=== PATIENT | female | born 1970 ===

== ENCOUNTER 2016-06-29 06:10 | Emergency (ER) | payer OTHER ==
[2016-06-29 06:10] VITALS: BMI 30.1
--- NOTE | 2016-06-29 06:42 | ED PDOC ---
HPI: SOB/CHF/COPD Time Seen by Provider: 06/29/16 06:30 Chief Complaint (Nursing): Cough, Cold, Congestion Chief Complaint (Provider): Shortness of Breath History Per: Patient History/Exam Limitations: no limitations Onset/Duration Of Symptoms: Hrs Current Symptoms Are (Timing): Still Present Initiating Event: Upper Respiratory Illness Quality: Tightness Exacerbating Factor(s): Coughing Current Respiratory Medications: See Home Med List Severity: Moderate Associated Symptoms: Chest Pain, Other (cough). denies: Fever, Bloody Cough, Productive Cough, Ankle/Leg Swelling Additional Complaint(s): Eufemia Louis is a 45 year old female, with a past medical history of asthma, bronchitis, and HTN, who presents to the emergency department for the evaluation of shortness of breath, that the patient has been experiencing for a few hours prior to arrival. Pain is inclusive of chest tightness. Associated cough and chest pain are also currently present. Denies a fever or leg swelling. Of note, patient states that her albuterol pump is not providing her any relief , prompting her visit to the emergency department. PMD: Dr. Sahu Past Medical History Reviewed: Historical Data Vital Signs: Last Vital Signs Temp 98.4 F 06/29/16 06:21 Pulse 102 H 06/29/16 06:58 Resp 20 06/29/16 06:21 BP 144/70 06/29/16 06:21 Pulse Ox 96 06/29/16 06:58 - Medical History PMH: Anxiety, Asthma, Bronchitis, HTN - Surgical History Surgical History: (x2) - Family History Family History: States: Hypertension - Social History Current smoker - smoking cessation education provided: No Ex-Smoker (has not smoked in the last 12 months): No Alcohol: Occasional Drugs: Denies - Home Medications Home Medications: Ambulatory Orders Medication Instructions Recorded Dicyclomine [Dicyclomine HCl] 10 mg PO BID PRN #6 cap 01/31/15 Fluticasone/Salmeterol 250/50 1 puff INH DAILY 01/31/15 [Advair Diskus 250/50] Mometasone Furoate [Nasonex] 2 spray NS DAILY 01/31/15 Montelukast [Singulair] 10 mg PO DAILY 01/31/15 Ondansetron [Zofran] 4 mg PO Q8H PRN #6 tab 01/31/15 Valsartan [Diovan] 160 mg PO DAILY 01/31/15 Albuterol 0.083% [Albuterol 3 ml IH Q4 PRN #50 neb 05/26/16 Sulfate 3 Ml] Erythromycin 500 mg PO BID 10 Days 05/26/16 Montelukast [Singulair] 10 mg PO DAILY #30 tab 05/26/16 Prednisone 50 mg PO DAILY #4 tablet 05/26/16 - Allergies Allergies/Adverse Reactions: Allergies Allergy/AdvReac Type Severity Reaction Status Date / Time ibuprofen Allergy CONGESTION Verified 08/24/15 09:27 naproxen Allergy CONGESTION Verified 08/24/15 09:27 Review of Systems ROS Statement: Except As Marked, All Systems Reviewed And Found Negative Constitutional: Negative for: Fever Cardiovascular: Positive for: Chest Pain. Negative for: Edema (leg swelling) Respiratory: Positive for: Cough, Shortness of Breath, Wheezing. Negative for: Sputum Physical Exam - Reviewed Nursing Documentation Reviewed: Yes Vital Signs Reviewed: Yes - Physical Exam Appears: Positive for: Non-toxic, No Acute Distress Head Exam: Positive for: ATRAUMATIC, NORMOCEPHALIC Skin: Positive for: Normal Color, Warm, Dry Eye Exam: Positive for: Normal appearance, EOMI ENT: Positive for: Normal ENT Inspection. Negative for: Pharyngeal Erythema, Tonsillar Exudate, Tonsillar Swelling Neck: Positive for: Normal, Painless ROM Cardiovascular/Chest: Positive for: Regular Rate, Rhythm. Negative for: Murmur Respiratory: Positive for: Decreased Breath Sounds, Wheezing (b/l) Gastrointestinal/Abdominal: Positive for: Normal Exam, Soft. Negative for: Tenderness Back: Positive for: Normal Inspection Extremity: Positive for: Normal ROM. Negative for: Tenderness, Pedal Edema, Swelling Neurologic/Psych: Positive for: Alert, Oriented - ECG ECG Rhythm: Positive for: Normal ST Segment, Sinus Rhythm, Sinus Tachycardia. Negative for: ST/T Changes Rate: 102 O2 Sat by Pulse Oximetry: 96 (RA) Pulse Ox Interpretation: Normal Medical Decision Making Medical Decision Makin:30 Initial Impression: asthma exacerbation Initial Plan: * EKG * CBC * BMP * Troponin I * Albuterol/Ipratropium 3ml INH * SOLU-Medrol 125mg IVP * Peak Flow Pre/Post Tx * Reevaluation EKG read, rate at 102. Normal Sinus Rhythm, Normal ST Segment, no ST/T changes, Sinus Tachycardia. Scribe Attestation: Documented by Akbar Smith, acting as a scribe for Gomez Mauro MD. Provider Scribe Attestation: All medical record entries made by the Scribe were at my direction and personally dictated by me. I have reviewed the chart and agree that the record accurately reflects my personal performance of the history, physical exam, medical decision making, and the department course for this patient. I have also personally directed, reviewed, and agree with the discharge instructions and disposition. Disposition - Clinical Impression Clinical Impression: Asthma - Patient ED Disposition Is Patient to be Admitted: Transfer of Care Counseled Patient/Family Regarding: Studies Performed, Diagnosis - Disposition Disposition: Transfer of Care Disposition Time: 07:00 Condition: FAIR Patient Signed Over To: Bj Loza III Handoff Comments: pending labs, reeval and final disposition
[2016-06-29] MEDS ORDERED: Albuterol-Ipratrop 3 mg / 0.5 (3 ml) UD INH STA ×3 (06:43→11:43)
[2016-06-29 07:10] LABS: BASO # 0.1 K/uL (0.0-0.2); BASO % 0.6 % (0.0-2.0); EOS # 1.1 K/uL (0.0-0.7); EOS % 7.5 % (0.0-4.0); HEMATOCRIT 35.3 % (34.0-47.0); LYMPH # 2.2 K/uL (1.0-4.3); LYMPH % 15.1 % (20.0-40.0); MEAN CELL VOLUME 82.4 fl (81.0-99.0); MEAN CORPUSCULAR HEMOGLOBIN 27.2 pg (27.0-31.0); MEAN CORPUSCULAR HGB CONC 33.1 g/dL (33.0-37.0); MEAN PLATELET VOLUME 8.8 fl (7.2-11.7); MONO # 1.3 K/uL (0.0-0.8); NEUT % 67.8 % (50.0-75.0); RED CELL DISTRIBUTION WIDTH 14.7 % (11.5-14.5); WHITE BLOOD COUNT 14.7 K/uL (4.8-10.8)
[2016-06-29 07:19] LABS: BLOOD UREA NITROGEN 15 mg/dl (7-17); CALCIUM 8.9 mg/dL (8.4-10.2); CARBON DIOXIDE 23 mmol/L (22-30); CHLORIDE 108 mmol/L (98-107); GFR AFRICAN-AMERICAN > 60; GLUCOSE,RANDOM 93 mg/dL (65-105); POTASSIUM 3.6 MMOL/L (3.6-5.0); SODIUM 142 mmol/l (132-148)
[2016-06-29 08:42] VITALS: RESP 16; O2SAT 98
--- NOTE | 2016-06-29 12:28 | ED PDOC ---
- Laboratory Results Result Diagrams: 06/29/16 07:03 06/29/16 07:03 - ECG O2 Sat by Pulse Oximetry: 98 (RA) Pulse Ox Interpretation: Normal Medical Decision Making Medical Decision Making: Time: 11:00 --Patient had wheezing b/l --Additional Duoneb 3 mg/3ml (3ml) UD 3ml IH given --Heartrate: 96 bpm --Pulse O2: 98% Time: 12:26 --Patient reports she is feeling better and has a normal speech pattern. --Pulse O2: 99% Disposition - Clinical Impression Clinical Impression: Asthma - Disposition Referrals: Osman Tan MD [Staff Provider] - Condition: STABLE Additional Instructions: Take medication as directed. Return to ER for any new or worse symptoms. Prescriptions: Albuterol 0.083% [Albuterol 0.083% Inhal Annamaria (2.5 mg/3 ml) UD] 2.5 mg IH Q4 PRN #20 neb PRN Reason: Wheezing Prednisone 50 mg PO DAILY #4 tab Albuterol HFA [Ventolin HFA 90 mcg/actuation (8 g)] 1 - 2 puff IH Q4 PRN #1 inhaler PRN Reason: Shortness Of Breath Instructions: Asthma (ED), Acute Cough (ED)
[2016-06-29 12:30] VITALS: BP 124/79; PULSE 92; TEMP 98
--- NOTE | 2016-06-29 15:01 | CARD ---
APPROVED REPORT EKG Measurement Heart [id number] <Conclusion> Sinus tachycardia Otherwise normal ECG
== END 2016-06-29 12:29 | disposition home or self-care (01) ==
LOC: H.ER 06:10
DX: J45.901 Unspecified asthma with (acute) exacerbation (principal); I10 Essential (primary) hypertension; R05 Cough

== ENCOUNTER 2016-07-25 09:03 | Emergency (ER) | payer SELFPAY ==
[2016-07-25 09:03] VITALS: BMI 30.1
[2016-07-25 09:23] VITALS: BP 137/109; O2SAT 99
[2016-07-25 09:25] VITALS: RESP 18
[2016-07-25 09:27] VITALS: TEMP 98.3
[2016-07-25] MEDS ORDERED: Albuterol-Ipratrop 3 mg / 0.5 (3 ml) UD ONE (09:58)
[2016-07-25] MEDS ORDERED: Albuterol-Ipratrop 3 mg / 0.5 (3 ml) UD INH STA ×2 (10:07→12:21)
[2016-07-25 10:43] LABS: BASO # 0.1 K/uL (0.0-0.2); BASO % 0.6 % (0.0-2.0); EOS # 1.3 K/uL (0.0-0.7); EOS % 11.6 % (0.0-4.0); HEMATOCRIT 39.4 % (34.0-47.0); LYMPH # 2.2 K/uL (1.0-4.3); LYMPH % 19.7 % (20.0-40.0); MEAN CORPUSCULAR HEMOGLOBIN 26.7 pg (27.0-31.0); MEAN CORPUSCULAR HGB CONC 32.6 g/dL (33.0-37.0); MEAN PLATELET VOLUME 8.8 fl (7.2-11.7); MONO # 0.9 K/uL (0.0-0.8); MONO % 8.2 % (0.0-10.0); NEUT # 6.8 K/uL (1.8-7.0); NEUT % 59.9 % (50.0-75.0); RED CELL DISTRIBUTION WIDTH 14.7 % (11.5-14.5); WHITE BLOOD COUNT 11.3 K/uL (4.8-10.8)
[2016-07-25 10:46] LABS: BLOOD UREA NITROGEN 9 mg/dl (7-17); CALCIUM 9.1 mg/dL (8.4-10.2); CARBON DIOXIDE 23 mmol/L (22-30); CHLORIDE 110 mmol/L (98-107); GFR AFRICAN-AMERICAN > 60; GLUCOSE,RANDOM 95 mg/dL (65-105); POTASSIUM 3.7 MMOL/L (3.6-5.0); SODIUM 141 mmol/l (132-148)
--- NOTE | 2016-07-25 12:50 | ED PDOC ---
HPI: SOB/CHF/COPD Time Seen by Provider: 07/25/16 09:26 Chief Complaint (Nursing): Shortness Of Breath Chief Complaint (Provider): Shortness Of Breath History Per: Patient History/Exam Limitations: no limitations Onset/Duration Of Symptoms: Days Current Symptoms Are (Timing): Still Present Initiating Event: Upper Respiratory Illness Quality: Tightness Exacerbating Factor(s): Coughing Current Respiratory Medications: See Home Med List Severity: Moderate Associated Symptoms: denies: Fever, Bloody Cough Additional Complaint(s): Patient is a 45 year old female with a history of mild persistent asthma, presents to ED for wheezing, SOB and cough ongoing for 2-3 days. Patient reports last asthma attack was last month, states symptoms usually worsen with weather changes. Taking Advair and antihistamine at home, denies hemoptysis, fever, chest pain or weakness Of note, last steroid use was last month. Past Medical History Reviewed: Historical Data, Nursing Documentation, Vital Signs Vital Signs: Last Vital Signs Temp 98.3 F 07/25/16 09:20 Pulse 109 H 07/25/16 09:20 Resp 18 07/25/16 09:24 BP 137/109 H 07/25/16 09:20 Pulse Ox 99 07/25/16 12:54 - Medical History PMH: Anxiety, Asthma, Bronchitis, HTN - Surgical History Surgical History: (x2) - Family History Family History: States: Unknown Family Hx, Hypertension - Living Arrangements Living Arrangements: With Family - Home Medications Home Medications: Ambulatory Orders Medication Instructions Recorded Dicyclomine [Dicyclomine HCl] 10 mg PO BID PRN #6 cap 01/31/15 Fluticasone/Salmeterol 250/50 1 puff INH DAILY 01/31/15 [Advair Diskus 250/50] Mometasone Furoate [Nasonex] 2 spray NS DAILY 01/31/15 Montelukast [Singulair] 10 mg PO DAILY 01/31/15 Ondansetron [Zofran] 4 mg PO Q8H PRN #6 tab 01/31/15 Valsartan [Diovan] 160 mg PO DAILY 01/31/15 Albuterol 0.083% [Albuterol 3 ml IH Q4 PRN #50 neb 05/26/16 Sulfate 3 Ml] Erythromycin 500 mg PO BID 10 Days 05/26/16 Montelukast [Singulair] 10 mg PO DAILY #30 tab 05/26/16 Prednisone 50 mg PO DAILY #4 tablet 05/26/16 Albuterol 0.083% [Albuterol 0.083% 2.5 mg IH Q4 PRN #20 neb 06/29/16 Inhal Letty (2.5 mg/3 ml) UD] Albuterol HFA [Ventolin HFA 90 1 - 2 puff IH Q4 PRN #1 inhaler 06/29/16 mcg/actuation (8 g)] Prednisone 50 mg PO DAILY #4 tab 06/29/16 Albuterol 0.042% [Albuterol 0.042% 3 ml IH Q4 PRN #20 letty 07/25/16 Inhal Letty (1.25mg/3ml) UD] Albuterol 0.083% [Albuterol 0.083% 2.5 mg IH Q4 PRN #20 neb 07/25/16 Inhal Letty (2.5 mg/3 ml) UD] Codeine Phosphate/Guaifenesin 10 ml PO TID PRN #120 liquid 07/25/16 [Guaifenesin-Codeine Syrup] Prednisone 50 mg PO DAILY #4 tab 07/25/16 - Allergies Allergies/Adverse Reactions: Allergies Allergy/AdvReac Type Severity Reaction Status Date / Time ibuprofen Allergy CONGESTION Verified 08/24/15 09:27 naproxen Allergy CONGESTION Verified 08/24/15 09:27 Review of Systems ROS Statement: Except As Marked, All Systems Reviewed And Found Negative Constitutional: Negative for: Fever, Chills, Weakness Cardiovascular: Negative for: Chest Pain, Palpitations Respiratory: Positive for: Cough, Shortness of Breath, Wheezing. Negative for: Hemoptysis Gastrointestinal: Negative for: Nausea, Vomiting, Abdominal Pain Musculoskeletal: Negative for: Back Pain Skin: Negative for: Rash Physical Exam - Reviewed Nursing Documentation Reviewed: Yes Vital Signs Reviewed: Yes - Physical Exam Appears: Positive for: Non-toxic, No Acute Distress Skin: Positive for: Normal Color, Warm Eye Exam: Positive for: Normal appearance Neck: Positive for: Normal Cardiovascular/Chest: Positive for: Regular Rate, Rhythm, Chest Non Tender. Negative for: Murmur Respiratory: Positive for: Wheezing (trace bilaterally ). Negative for: Decreased Breath Sounds, Accessory Muscle Use, Rhonchi, Respiratory Distress Extremity: Positive for: Normal ROM. Negative for: Pedal Edema, Calf Tenderness Neurologic/Psych: Positive for: Alert, Oriented - Laboratory Results Result Diagrams: 07/25/16 10:18 07/25/16 10:18 - ECG ECG: Positive for: Interpreted By Me ECG Rhythm: Positive for: Normal QRS, Normal ST Segment, Sinus Tachycardia. Negative for: ST/T Changes Rate: 101 O2 Sat by Pulse Oximetry: 99 (RA) Pulse Ox Interpretation: Normal Medical Decision Making Medical Decision Making: Time: 1000 Initial impression: Asthma exacerbation Initial plan: -- BMP -- CBC -- Duoneb x1, Solumderol IVP Time: 1215 Patient reports continued wheezing Plan: -- Duoneb Time: 1230 Blood work reviewed :WNL Patient reports marked improvement at this time, discussed the importance of following up with the clinic in 3 days. Patient will be discharged with Prednisone, patient requested an expectorant cough medication and albuterol refill medication. Scribe Attestation: Documented by Dary Carr acting as a scribe for jB Loza DO MD Scribe Attestation: All medical record entries made by the Scribe were at my direction and personally dictated by me. I have reviewed the chart and agree that the record accurately reflects my personal performance of the history, physical exam, medical decision making, and the department course for this patient. I have also personally directed, reviewed, and agree with the discharge instructions and disposition. Disposition - Clinical Impression Clinical Impression: Asthma exacerbation - Disposition Referrals: [facility] [Outside] Disposition: Routine/Home Disposition Time: 12:35 Condition: STABLE Additional Instructions: See primary doctor in 2-3 days. Return to ER for any worse or new symptoms. Prescriptions: Albuterol 0.042% [Albuterol 0.042% Inhal Letty (1.25mg/3ml) UD] 3 ml IH Q4 PRN # 20 letty PRN Reason: Other Albuterol 0.083% [Albuterol 0.083% Inhal Letty (2.5 mg/3 ml) UD] 2.5 mg IH Q4 PRN #20 neb PRN Reason: Wheezing Codeine Phosphate/Guaifenesin [Guaifenesin-Codeine Syrup] 10 ml PO TID PRN #120 liquid PRN Reason: Cough Prednisone 50 mg PO DAILY #4 tab Instructions: Asthma (ED)
[2016-07-25 12:55] VITALS: PULSE 101
== END 2016-07-25 12:58 | disposition home or self-care (01) ==
LOC: H.ER 09:03
DX: J45.901 Unspecified asthma with (acute) exacerbation (principal); R05 Cough; F41.9 Anxiety disorder, unspecified; I10 Essential (primary) hypertension

== ENCOUNTER 2017-02-11 08:40 | Emergency (ER) | payer SELFPAY ==
[2017-02-11 08:41] VITALS: BMI 30.1
[2017-02-11 08:51] VITALS: BP 121/73; PULSE 109; TEMP 98.2; O2SAT 97
[2017-02-11 08:58] VITALS: RESP 18
[2017-02-11] MEDS ORDERED: Albuterol-Ipratrop 3 mg / 0.5 (3 ml) UD INH STA (09:18)
--- NOTE | 2017-02-11 09:18 | ED PDOC ---
HPI: CCC, URI, Sore Throat Time Seen by Provider: 02/11/17 09:10 Chief Complaint (Nursing): Cough, Cold, Congestion Chief Complaint (Provider): Congestion, cough History Per: Patient History/Exam Limitations: no limitations Onset/Duration Of Symptoms: Days (x2 months) Current Symptoms Are (Timing): Still Present Associated Symptoms: Cough, Nasal Congestion Ear Symptoms: Bilateral: None Additional Complaint(s): Eufemia Louis is a 46 year old female, with a past medical history of asthma and bronchitis, who presents to the emergency department complaining of a worsening nasal congestion, cough, and post-nasal drip onset for 2 months. Patient has a history of nasal polyps. She denies any fever, chills, chest pain and shortness of breath. No further medical complaints. PMD: None provided. Past Medical History Reviewed: Historical Data, Nursing Documentation, Vital Signs Vital Signs: Last Vital Signs Temp 98.2 F 02/11/17 08:56 Pulse 109 H 02/11/17 08:56 Resp 18 02/11/17 08:56 BP 121/73 02/11/17 08:56 Pulse Ox 97 02/11/17 09:22 - Medical History PMH: Anxiety, Asthma, Bronchitis, HTN - Surgical History Surgical History: (x2) - Family History Family History: States: Unknown Family Hx, Hypertension - Home Medications Home Medications: Ambulatory Orders Medication Instructions Recorded Dicyclomine [Dicyclomine HCl] 10 mg PO BID PRN #6 cap 01/31/15 Fluticasone/Salmeterol 250/50 1 puff INH DAILY 01/31/15 [Advair Diskus 250/50] Mometasone Furoate [Nasonex] 2 spray NS DAILY 01/31/15 Montelukast [Singulair] 10 mg PO DAILY 01/31/15 Ondansetron [Zofran] 4 mg PO Q8H PRN #6 tab 01/31/15 Valsartan [Diovan] 160 mg PO DAILY 01/31/15 Albuterol 0.083% [Albuterol 3 ml IH Q4 PRN #50 neb 05/26/16 Sulfate 3 Ml] Erythromycin 500 mg PO BID 10 Days tab 05/26/16 Montelukast [Singulair] 10 mg PO DAILY #30 tab 05/26/16 Prednisone 50 mg PO DAILY #4 tablet 05/26/16 Albuterol 0.083% [Albuterol 0.083% 2.5 mg IH Q4 PRN #20 neb 06/29/16 Inhal Annamaria (2.5 mg/3 ml) UD] Albuterol HFA [Ventolin HFA 90 1 - 2 puff IH Q4 PRN #1 inhaler 06/29/16 mcg/actuation (8 g)] Prednisone 50 mg PO DAILY #4 tab 06/29/16 Albuterol 0.042% [Albuterol 0.042% 3 ml IH Q4 PRN #20 annamaria 07/25/16 Inhal Annamaria (1.25mg/3ml) UD] Albuterol 0.083% [Albuterol 0.083% 2.5 mg IH Q4 PRN #20 neb 07/25/16 Inhal Annamaria (2.5 mg/3 ml) UD] Codeine Phosphate/Guaifenesin 10 ml PO TID PRN #120 liquid 07/25/16 [Guaifenesin-Codeine Syrup] Prednisone 50 mg PO DAILY #4 tab 07/25/16 Albuterol 0.083% [Albuterol 0.083% 3 ml IH Q6H PRN #30 neb 02/11/17 Inhal Annamaria (2.5 mg/3 ml) UD] Loratadine [Claritin] 10 mg PO DAILY #10 tab 02/11/17 - Allergies Allergies/Adverse Reactions: Allergies Allergy/AdvReac Type Severity Reaction Status Date / Time ibuprofen Allergy CONGESTION Verified 08/24/15 09:27 naproxen Allergy CONGESTION Verified 08/24/15 09:27 Review of Systems ROS Statement: Except As Marked, All Systems Reviewed And Found Negative Constitutional: Negative for: Fever, Chills ENT: Positive for: Nose Congestion, Other (post-nasal drip) Cardiovascular: Negative for: Chest Pain Respiratory: Positive for: Cough. Negative for: Shortness of Breath Physical Exam - Reviewed Nursing Documentation Reviewed: Yes Vital Signs Reviewed: Yes - Physical Exam Appears: Positive for: Well, Non-toxic, No Acute Distress Head Exam: Positive for: ATRAUMATIC, NORMAL INSPECTION, NORMOCEPHALIC Skin: Positive for: Normal Color, Warm, Dry Eye Exam: Positive for: EOMI, Normal appearance, PERRL ENT: Positive for: Nasal Congestion Neck: Positive for: Normal, Painless ROM, Supple Cardiovascular/Chest: Positive for: Regular Rate, Rhythm. Negative for: Murmur Respiratory: Positive for: Normal Breath Sounds. Negative for: Respiratory Distress Gastrointestinal/Abdominal: Positive for: Normal Exam, Bowel Sounds, Soft. Negative for: Tenderness, Guarding, Rebound Back: Positive for: Normal Inspection. Negative for: L CVA Tenderness, R CVA Tenderness Extremity: Positive for: Normal ROM. Negative for: Deformity, Swelling Neurologic/Psych: Positive for: Alert, Oriented - ECG O2 Sat by Pulse Oximetry: 97 (RA) Pulse Ox Interpretation: Normal - Radiology X-Ray: Interpreted by Me X-Ray Interpretation: No Acute Disease Medical Decision Making Medical Decision Making: Initial Impression: URI, allergies Initial Plan: --Urine --Duoneb 3 ml INH --Peak flow pre/post Tx --reevaluation Scribe Attestation: Documented by Asad Orourke, acting as a scribe for Mimi Silva MD Provider Scribe Attestation: All medical record entries made by the Scribe were at my direction and personally dictated by me. I have reviewed the chart and agree that the record accurately reflects my personal performance of the history, physical exam, medical decision making, and the department course for this patient. I have also personally directed, reviewed, and agree with the discharge instructions and disposition. Disposition - Clinical Impression Clinical Impression: Allergic symptoms - Disposition Referrals: [facility] [Outside] Condition: STABLE Prescriptions: Albuterol 0.083% [Albuterol 0.083% Inhal Annamaria (2.5 mg/3 ml) UD] 3 ml IH Q6H PRN # 30 neb PRN Reason: Shortness Of Breath Loratadine [Claritin] 10 mg PO DAILY #10 tab Instructions: Allergies (ED) Forms: [employer] ([place]), [employer] ([place]) Print Language: TURKISH
[2017-02-11] MEDS ORDERED: Albuterol-Ipratrop 3 mg / 0.5 (3 ml) UD ONE (10:20)
--- NOTE | 2017-02-11 11:33 | RAD ---
HISTORY: Cough COMPARISON: Chest radiograph dated 05/26/2016. TECHNIQUE: Chest PA and lateral FINDINGS: LUNGS: No active pulmonary disease. PLEURA: No significant pleural effusion identified. No pneumothorax apparent. CARDIOVASCULAR: Normal. OSSEOUS STRUCTURES: No significant abnormalities. VISUALIZED UPPER ABDOMEN: Normal. OTHER FINDINGS: None. IMPRESSION: No active disease.
== END 2017-02-11 11:27 | disposition home or self-care (01) ==
LOC: H.ER 08:40
DX: T78.40XA Allergy, unspecified, initial encounter (principal); F41.9 Anxiety disorder, unspecified; I10 Essential (primary) hypertension; J45.909 Unspecified asthma, uncomplicated

== ENCOUNTER 2017-08-11 07:28 | Observation (INO) | payer OTHER, SELFPAY ==
[2017-08-11 07:28] VITALS: BMI 30.1
--- NOTE | 2017-08-11 08:24 | ED PDOC ---
HPI: Abdomen Time Seen by Provider: 08/11/17 07:44 Chief Complaint (Nursing): GI Problem Chief Complaint (Provider): GI Problem History Per: Patient History/Exam Limitations: no limitations Onset/Duration Of Symptoms: Days (x 2) Current Symptoms Are (Timing): Constant Location Of Pain/Discomfort: LLQ Quality Of Discomfort: "Pain" Additional Complaint(s): 46 year old female presents with constant abdominal pain for the last 2 days. Patient reports she had diarrhea when the symptoms begin but has since resolved. She states that she has blood after bowel movements when she wipes. Offers no other complaints. PMD: none provided Past Medical History Reviewed: Historical Data, Nursing Documentation, Vital Signs Vital Signs: Last Vital Signs Temp 98.1 F 08/11/17 07:40 Pulse 82 08/11/17 07:40 Resp 16 08/11/17 07:40 BP 128/75 08/11/17 07:40 Pulse Ox 99 08/11/17 08:34 - Medical History PMH: Anxiety, Asthma, Bronchitis, HTN - Surgical History Surgical History: (x2) - Family History Family History: States: Unknown Family Hx, Hypertension - Home Medications Home Medications: Ambulatory Orders Medication Instructions Recorded Dicyclomine [Dicyclomine HCl] 10 mg PO BID PRN #6 cap 01/31/15 Fluticasone/Salmeterol 250/50 1 puff INH DAILY 01/31/15 [Advair Diskus 250/50] Mometasone Furoate [Nasonex] 2 spray NS DAILY 01/31/15 Montelukast [Singulair] 10 mg PO DAILY 01/31/15 Ondansetron [Zofran] 4 mg PO Q8H PRN #6 tab 01/31/15 Valsartan [Diovan] 160 mg PO DAILY 01/31/15 Albuterol 0.083% [Albuterol 3 ml IH Q4 PRN #50 neb 05/26/16 Sulfate 3 Ml] Erythromycin 500 mg PO BID 10 Days tab 05/26/16 Montelukast [Singulair] 10 mg PO DAILY #30 tab 05/26/16 Prednisone 50 mg PO DAILY #4 tablet 05/26/16 Albuterol 0.083% [Albuterol 0.083% 2.5 mg IH Q4 PRN #20 neb 06/29/16 Inhal Annamaria (2.5 mg/3 ml) UD] Albuterol HFA [Ventolin HFA 90 1 - 2 puff IH Q4 PRN #1 inhaler 06/29/16 mcg/actuation (8 g)] Prednisone 50 mg PO DAILY #4 tab 06/29/16 Albuterol 0.042% [Albuterol 0.042% 3 ml IH Q4 PRN #20 annamaria 07/25/16 Inhal Annamaria (1.25mg/3ml) UD] Albuterol 0.083% [Albuterol 0.083% 2.5 mg IH Q4 PRN #20 neb 07/25/16 Inhal Annamaria (2.5 mg/3 ml) UD] Codeine Phosphate/Guaifenesin 10 ml PO TID PRN #120 liquid 07/25/16 [Guaifenesin-Codeine Syrup] Prednisone 50 mg PO DAILY #4 tab 07/25/16 Albuterol 0.083% [Albuterol 0.083% 3 ml IH Q6H PRN #30 neb 02/11/17 Inhal Annamaria (2.5 mg/3 ml) UD] Loratadine [Claritin] 10 mg PO DAILY #10 tab 02/11/17 - Allergies Allergies/Adverse Reactions: Allergies Allergy/AdvReac Type Severity Reaction Status Date / Time ibuprofen Allergy CONGESTION Verified 08/11/17 07:31 naproxen Allergy CONGESTION Verified 08/11/17 07:31 Review of Systems ROS Statement: Except As Marked, All Systems Reviewed And Found Negative Gastrointestinal: Positive for: Abdominal Pain (constant; associated with blood in bowel movements after wiping) Physical Exam - Reviewed Nursing Documentation Reviewed: Yes Vital Signs Reviewed: Yes - Physical Exam Appears: Positive for: Non-toxic, No Acute Distress Head Exam: Positive for: ATRAUMATIC, NORMOCEPHALIC Skin: Positive for: Normal Color, Warm, Dry Eye Exam: Positive for: EOMI, Normal appearance, PERRL Neck: Positive for: Normal, Painless ROM, Supple Cardiovascular/Chest: Positive for: Regular Rate, Rhythm Respiratory: Positive for: CNT, Normal Breath Sounds Gastrointestinal/Abdominal: Positive for: Tenderness (in LLQ ) Rectal: Positive for: Hemorrhoids (non thrombosed external hemorrhoid present). Negative for: Other (gross blood) Neurologic/Psych: Positive for: Alert, Oriented (x 3) - Laboratory Results Result Diagrams: 08/11/17 09:00 08/11/17 09:00 - ECG O2 Sat by Pulse Oximetry: 99 (RA) Pulse Ox Interpretation: Normal Medical Decision Making Medical Decision Making: Time: 08:18 Initial Plan: --CT abd & pelvis --EKG --CMP --Lipase --Urine preg --Urine dip --CBC with differentials --PTT --Prothrombin time --Morphine 2 mg IV --Occult blood --Urinalysis Pharmacologist for rectal exam is Liliana. Time: 11:24 CT abd & pelvis FINDINGS: LOWER THORAX: Unremarkable. LIVER: Diffuse hepatic steatosis is appreciate without underlying mass appreciable or intrahepatic biliary dilatation. GALLBLADDER AND BILE DUCTS: Unremarkable. PANCREAS: Unremarkable. No gross lesion or ductal dilatation. SPLEEN: Unremarkable. ADRENALS: Unremarkable. No mass. KIDNEYS AND URETERS: Unremarkable. No hydronephrosis. No solid mass. VASCULATURE: Unremarkable. No aortic aneurysm. BOWEL: The stomach is completely collapsed and is poorly evaluated. The lack of oral contrast limits evaluation of gastrointestinal tract further. There is no bowel obstruction appreciate involving large or small bowel segments. Evaluation large -bowel all is remarkable for thickening of the distal splenic flexure extending to the mid to distal descending segment port proximal to the sigmoid colon with subtle pericolic reaction but no abscess or free intraperitoneal gas. Pattern suggest segmental colitis. Consider infectious or inflammatory causes though ischemia and neoplasm are not completely excluded. Robust opacification of the abdominal aorta is appreciated as well as the celiac and superior mesenteric arteries and ischemia is not favored common nor is neoplasm but further clinical correlation is required. No associated diverticular changes. APPENDIX: Normal appendix. PERITONEUM: Unremarkable. No free fluid. No free air. LYMPH NODES: Unremarkable. No enlarged lymph nodes. BLADDER: Unremarkable. REPRODUCTIVE: Heterogeneous uterine enhancement may indicate underlying uterine fibroids. There is also a 2.1 cm left adnexal cyst. BONES: No acute fracture. OTHER FINDINGS: None. IMPRESSION: 1. Left colonic segmental colitis originating at the distal splenic flexure and extending to the descending colon proximal to the sigmoid segment. No abscess or free air. No associated diverticular changes. Please see differential diagnosis above. Follow-up lower endoscopy is recommended when feasible to exclude potential underlying lesion. 2. Likely uterine fibroid disease. 2.1 cm left adnexal cysts is also identified. 3. Hepatic steatosis. Scribe Attestation: Documented by Danita Fitzgerald, acting as a scribe for Mimi Silva MD Provider Scribe Attestation: All medical record entries made by the Scribe were at my direction and personally dictated by me. I have reviewed the chart and agree that the record accurately reflects my personal performance of the history, physical exam, medical decision making, and the department course for this patient. I have also personally directed, reviewed, and agree with the discharge instructions and disposition. Disposition - Disposition Condition: FAIR Forms: [employer] (Algerian)
[2017-08-11 09:17] LABS: BASO # 0.1 K/uL (0.0-0.2); BASO % 0.5 % (0.0-2.0); EOS # 0.1 K/uL (0.0-0.7); HEMOGLOBIN 10.7 g/dL (12.0-16.0); LYMPH # 1.6 K/uL (1.0-4.3); MEAN CELL VOLUME 76.7 fl (81.0-99.0); MEAN CORPUSCULAR HEMOGLOBIN 25.2 pg (27.0-31.0); MEAN CORPUSCULAR HGB CONC 32.8 g/dL (33.0-37.0); MEAN PLATELET VOLUME 8.5 fl (7.2-11.7); MONO # 0.9 K/uL (0.0-0.8); NEUT # 10.4 K/uL (1.8-7.0); NEUT % 79.5 % (50.0-75.0); NRBC % 0.1 % (0.0-0.0); RBC 4.24 Mil/uL (3.80-5.20); RED CELL DISTRIBUTION WIDTH 14.9 % (11.5-14.5); WHITE BLOOD COUNT 13.1 K/uL (4.8-10.8)
[2017-08-11 09:29] LABS: PARTIAL THROMBOPLASTIN TIME 27.6 Seconds (25.6-37.1); PROTHROMBIN TIME 11.3 Seconds (9.8-13.1)
[2017-08-11 09:31] LABS: ALB/GLOB RATIO 1.2 (1.0-2.1); ALT/SGPT 28 U/L (9-52); AST/SGOT 26 U/L (14-36); BLOOD UREA NITROGEN 15 mg/dl (7-17); GFR AFRICAN-AMERICAN > 60; GFR NON-AFRICAN AMERICAN > 60; LIPASE 26 U/L (23-300)
[2017-08-11 09:35] LABS: SQUAMOUS EPITHIAL 8 /hpf (0-5); URINE BACTERIA RARE (<OCC); URINE BILIRUBIN NEGATIVE (NEGATIVE); URINE BLOOD NEGATIVE (NEGATIVE); URINE CLARITY SLIGHTY-CLOUDY (Clear); URINE COLOR YELLOW (YELLOW); URINE GLUCOSE (UA) NEG (Normal); URINE LEUKOCYTE ESTERASE NEG Leu/uL (Negative); URINE PROTEIN 30 mg/dL (NEGATIVE); URINE UROBILINOGEN 0.2-1.0 mg/dL (0.2-1.0)
[2017-08-11] MEDS ORDERED: Sodium Chloride 0.9% 50 ML IV ONE (10:06)
[2017-08-11] MEDS ORDERED: Iohexol 300 100 ML IJ ONE (10:06)
--- NOTE | 2017-08-11 11:24 | CT ---
PROCEDURE: CT Abdomen and Pelvis with contrast HISTORY: LLQ pain COMPARISON: None. TECHNIQUE: Following the intravenous administration of iodinated contrast material, a CT examination of the abdomen and pelvis performed from the domes of the diaphragms to the symphysis pubis with reformatted datasets provided not only axial but also sagittal and coronal planes. Oral contrast was not administered as per referring physician request. Contrast dose: Omnipaque 300, 95 cc Radiation dose: Total exam DLP = 459.18 mGy-cm. This CT exam was performed using one or more of the following dose reduction techniques: Automated exposure control, adjustment of the mA and/or kV according to patient size, and/or use of iterative reconstruction technique. FINDINGS: LOWER THORAX: Unremarkable. LIVER: Diffuse hepatic steatosis is appreciate without underlying mass appreciable or intrahepatic biliary dilatation. GALLBLADDER AND BILE DUCTS: Unremarkable. PANCREAS: Unremarkable. No gross lesion or ductal dilatation. SPLEEN: Unremarkable. ADRENALS: Unremarkable. No mass. KIDNEYS AND URETERS: Unremarkable. No hydronephrosis. No solid mass. VASCULATURE: Unremarkable. No aortic aneurysm. BOWEL: The stomach is completely collapsed and is poorly evaluated. The lack of oral contrast limits evaluation of gastrointestinal tract further. There is no bowel obstruction appreciate involving large or small bowel segments. Evaluation large-bowel all is remarkable for thickening of the distal splenic flexure extending to the mid to distal descending segment port proximal to the sigmoid colon with subtle pericolic reaction but no abscess or free intraperitoneal gas. Pattern suggest segmental colitis. Consider infectious or inflammatory causes though ischemia and neoplasm are not completely excluded. Robust opacification of the abdominal aorta is appreciated as well as the celiac and superior mesenteric arteries and ischemia is not favored common nor is neoplasm but further clinical correlation is required. No associated diverticular changes. APPENDIX: Normal appendix. PERITONEUM: Unremarkable. No free fluid. No free air. LYMPH NODES: Unremarkable. No enlarged lymph nodes. BLADDER: Unremarkable. REPRODUCTIVE: Heterogeneous uterine enhancement may indicate underlying uterine fibroids. There is also a 2.1 cm left adnexal cyst. BONES: No acute fracture. OTHER FINDINGS: None. IMPRESSION: 1. Left colonic segmental colitis originating at the distal splenic flexure and extending to the descending colon proximal to the sigmoid segment. No abscess or free air. No associated diverticular changes. Please see differential diagnosis above. Follow-up lower endoscopy is recommended when feasible to exclude potential underlying lesion. 2. Likely uterine fibroid disease. 2.1 cm left adnexal cysts is also identified. 3. Hepatic steatosis.
[2017-08-11] MEDS ORDERED: Ciprofloxacin 400mg/200ml D5W 400 MG/200 ML BAG IV STA (11:32)
[2017-08-11] MEDS ORDERED: metroNIDAZOLE 500mg/100ml NS 100 ML IV STA (11:32)
[2017-08-11] MEDS ORDERED: Ciprofloxacin 400mg/200ml D5W 400 MG/200 ML BAG IVPB ONE (12:21)
--- NOTE | 2017-08-11 12:49 | CP.PCM.HP ---
History of Present Illness - History of Present Illness History of Present Illness: 46 yo female with a pmhx of asthma, HTN, allergic rhinitis , sinus tachycardia , hemorrhoids and lactose intolerance presented to [facility] ED this morning with c /o diffuse cramping abdominal pain (12/31) associated with one episode of watery diarrhea and multiple episodes of rectal bleeding since last night. Pt reports she started to have abdominal pain and diarrhea suddenly after eating a home cooked meal yesterday. She attributes the diarrhea to her lactose intolenance. Reports she felt chills last night but denies any sweats or subjective fever. Denies any hx similar episodes in the past. Denies nausea, vomiting, chest pain, dypsnea, cough, headache, dizziness, palpitation or blurry vision. Has sick contact at work. Denies recent any trip outside of the [place]. LMP: 2 weeks ago. ED COURSE: VS: BP 128/75, HR 82, RR 16, TEMP 98.1, Pulse ox 99% CBC: 13.1>10.7/32.5<448 CMP: WNL, PT/PTT/INR: WNL; stool occult blood: positive CT Abdomen and pelvis: IMPRESSION: 1. Left colonic segmental colitis originating at the distal splenic flexure and extending to the descending colon proximal to the sigmoid segment. No abscess or free air. No associated diverticular changes. Please see differential diagnosis above. Follow-up lower endoscopy is recommended when feasible to exclude potential underlying lesion. 2. Likely uterine fibroid disease. 2.1 cm left adnexal cysts is also identified. 3. Hepatic steatosis. Meds: Morphine 2 mg IVP, Cipro 400 mg IV PMD: [facility], Last visit 03/03/2017 PMHX: Asthma, allergic rhinitis, hemorrhoids, HTN, sinus tachycardia Medications: ventolin HFA, zytrec 10 mg po qhs, diltiazem 120 mg po daily, symbicort 80/4.5 mcg/act 2 Puffs bid. Allergies: Ibuprofen:congestion, Naproxen: nervousness PSHX: x 2 Family hx: Mother: RA, Father: HTN, Paternal grandmother: stomach CA at 80's Social hx: Denies smoking cigarettes or using drugs. Drinks socially. LMP: 2 weeks ago. basket person: Delroy Heriberto [phone] Present on Admission - Present on Admission Any Indicators Present on Admission: Yes Review of Systems - Constitutional Constitutional: Chills. absent: Fever - EENT Eyes: absent: Blurred Vision - Cardiovascular Cardiovascular: absent: Chest Pain, Chest Pain at Rest, Dyspnea - Respiratory Respiratory: absent: Cough, Dyspnea - Gastrointestinal Gastrointestinal: Abdominal Pain. absent: Constipation, Dyspepsia, Dysphagia, Nausea, Vomiting - Genitourinary Genitourinary: absent: Dysuria, Hematuria - Musculoskeletal Musculoskeletal: absent: Joint Swelling, Neck Pain - Neurological Neurological: absent: Dizziness, Headaches Past Patient History - Past Medical History & Family History Past Medical History?: Yes - Past Social History Smoking Status: Never Smoked - CARDIAC Hx Hypertension: Yes - PULMONARY Hx Asthma: Yes Hx Bronchitis: Yes - HEENT Hx HEENT Problems: Yes - PSYCHIATRIC Hx Anxiety: Yes - SURGICAL HISTORY Hx Section: Yes - ANESTHESIA Hx Anesthesia: Yes Hx Anesthesia Reactions: No Hx Malignant Hyperthermia: No Meds Allergies/Adverse Reactions: Allergies Allergy/AdvReac Type Severity Reaction Status Date / Time ibuprofen Allergy CONGESTION Verified 08/11/17 07:31 naproxen Allergy CONGESTION Verified 08/11/17 07:31 Physical Exam - Constitutional Appears: Non-toxic, No Acute Distress - Head Exam Head Exam: ATRAUMATIC, NORMAL INSPECTION, NORMOCEPHALIC - Eye Exam Eye Exam: EOMI, Normal appearance - ENT Exam ENT Exam: Mucous Membranes Moist, Normal Oropharynx - Neck Exam Neck exam: Positive for: Normal Inspection. Negative for: Lymphadenopathy - Respiratory Exam Respiratory Exam: Clear to Auscultation Bilateral, NORMAL BREATHING PATTERN. absent: Rales, Rhonchi, Wheezes - Cardiovascular Exam Cardiovascular Exam: REGULAR RHYTHM, RRR, +S1, +S2 - GI/Abdominal Exam GI & Abdominal Exam: Normal Bowel Sounds, Soft. absent: Guarding, Rebound Additional comments: Moderate LLQ tenderness. No rebound or guarding. - Extremities Exam Extremities exam: Positive for: normal inspection. Negative for: pedal edema - Back Exam Back exam: absent: CVA tenderness (L), CVA tenderness (R) - Neurological Exam Neurological exam: Alert, Oriented x3 - Psychiatric Exam Psychiatric exam: Normal Affect, Normal Mood Results - Vital Signs Recent Vital Signs: Last Vital Signs Temp 98.1 F 08/11/17 12:18 Pulse 82 08/11/17 12:18 Resp 16 08/11/17 12:18 BP 132/87 08/11/17 12:18 Pulse Ox 99 08/11/17 11:33 - Labs Result Diagrams: 08/11/17 09:00 08/11/17 09:00 Labs: Laboratory Results - last 24 hr 08/11/17 08/11/17 08/11/17 08:45 09:00 09:00 WBC 13.1 H RBC 4.24 Hgb 10.7 L D Hct 32.5 L MCV 76.7 L D MCH 25.2 L MCHC 32.8 L RDW 14.9 H Plt Count 448 H MPV 8.5 Neut % (Auto) 79.5 H Lymph % (Auto) 12.0 L [place] % (Auto) 7.0 Eos % (Auto) 1.0 Baso % (Auto) 0.5 Neut # (Auto) 10.4 H Lymph # (Auto) 1.6 [place] # (Auto) 0.9 H Eos # (Auto) 0.1 Baso # (Auto) 0.1 PT INR APTT Sodium 139 Potassium 3.7 Chloride 105 Carbon Dioxide 25 Anion Gap 13 BUN 15 Creatinine 0.6 L Est GFR ( Amer) > 60 Est GFR (Non-Af Amer) > 60 Random Glucose 99 Calcium 9.0 Total Bilirubin 0.7 AST 26 ALT 28 Alkaline Phosphatase 80 Total Protein 7.4 Albumin 4.0 Globulin 3.4 Albumin/Globulin Ratio 1.2 Lipase 26 Urine Color Yellow Urine Clarity Slighty-cloudy Urine pH 6.0 Ur Specific [place] 1.025 Urine Protein 30 Urine Glucose (UA) Neg Urine Ketones 20 Urine Blood Negative Urine Nitrate Negative Urine Bilirubin Negative Urine Urobilinogen 0.2-1.0 Ur Leukocyte Esterase Neg Urine RBC (Auto) 4 H Urine Microscopic WBC 2 Ur Squamous Epith Cells 8 H Urine Bacteria Rare Stool Occult Blood Positive H 08/11/17 09:00 WBC RBC Hgb Hct MCV MCH MCHC RDW Plt Count MPV Neut % (Auto) Lymph % (Auto) [place] % (Auto) Eos % (Auto) Baso % (Auto) Neut # (Auto) Lymph # (Auto) [place] # (Auto) Eos # (Auto) Baso # (Auto) PT 11.3 INR 1.0 APTT 27.6 Sodium Potassium Chloride Carbon Dioxide Anion Gap BUN Creatinine Est GFR ( Amer) Est GFR (Non-Af Amer) Random Glucose Calcium Total Bilirubin AST ALT Alkaline Phosphatase Total Protein Albumin Globulin Albumin/Globulin Ratio Lipase Urine Color Urine Clarity Urine pH Ur Specific [place] Urine Protein Urine Glucose (UA) Urine Ketones Urine Blood Urine Nitrate Urine Bilirubin Urine Urobilinogen Ur Leukocyte Esterase Urine RBC (Auto) Urine Microscopic WBC Ur Squamous Epith Cells Urine Bacteria Stool Occult Blood Assessment & Plan - Assessment and Plan (Free Text) Assessment: 46 yo female with a pmhx of asthma, HTN, allergic rhinitis , sinus tachycardia , hemorrhoids and lactose intolerance admitted for acute diverticulitis and rectal bleeding. Plan: 1) Acute diverticulitis -Abdominal pain and rectal bleeding in ED presentation -CT abdomen and pelvis: -IMPRESSION: Left colonic segmental colitis originating at the distal splenic flexure and extending to the descending colon proximal to the sigmoid segment. No abscess or free air. No associated diverticular changes. Please see differential diagnosis above. Follow-up lower endoscopy is recommended when feasible to exclude potential underlying lesion. -Mild leukocytosis 13.1 wbc with left shift, Afebrile with stable VS -Continue with Cipro 400 mg ivp q12 -Start Flagyl 500 mg IVP q8 -GI recommendation appreciated -Clear liquid diet -F/U CBC tomorrow AM 2) Rectal bleeding -Hx hemorrhoids -combination of diverculitis and internal hemorrhoids -Start anusol HC VT bid -Monitor H&H -Stable vs 3) Acute blood loss anemia -H&H: 10.7/32.5 -Asymptomatic -Denies hx anemia -Monitor H&H -f/u ferritin, iron and TIBC 4) Hypertension: -Stable -c/w home medication, diltiazem 120 mg po daily 5) Asthma, unspecified -Stable -c/w home medication 6) Allergic rhinitis -Stable -C/w home medications 7) DVT prophylaxsis: -SCDs -Encourage ambulation 8) Code status: -Full code
--- NOTE | 2017-08-11 13:56 | CP.PCM.CON ---
<Fabiano Cho - Last Filed: 08/11/17 14:47> History of Present Illness - History of Present Illness History of Present Illness: PGY5 GI Fellow Consult Note Patient is a 46yo female with PMHx significant for HTN, seasonal allergies and sinus tachycardia who presented to the ED with abdominal pain, diarrhea and rectal bleeding. The patient states that she suddenly developed severe 10/10 B/ L lower quadrant abdominal pain yesterday afternoon. She initially had cramping pains which was followed by an episode of loose, watery stool. She admits to passage of fresh red blood after several attempts to pass more stool unsuccessfully. She admits to chills and admits a virus has affected a number of colleagues at work. Denies any recent antibiotic use or travel outside the [facility]. She denies any nausea, vomiting, weight loss. A IV contrast enhanced CT of the abd/pelvis performed in the ED revealed descending and sigmoid colitis. Patient denies any history of colitis, hemorrhoids/rectal bleeding or anemia previously. 12 system ROS performed and negative except where stated. PMHx: See HPI PSHx: FHx: No first degree relatives with h/o cancer Social: Denies tobacco, EtOH or illicit drug use Endo: No prior endoscopy/colonoscopy Past Patient History - Past Medical History & Family History Past Medical History?: Yes - Past Social History Smoking Status: Never Smoked - CARDIAC Hx Hypertension: Yes - PULMONARY Hx Asthma: Yes Hx Bronchitis: Yes - HEENT Hx HEENT Problems: Yes - PSYCHIATRIC Hx Anxiety: Yes - SURGICAL HISTORY Hx Section: Yes - ANESTHESIA Hx Anesthesia: Yes Hx Anesthesia Reactions: No Hx Malignant Hyperthermia: No Meds Allergies/Adverse Reactions: Allergies Allergy/AdvReac Type Severity Reaction Status Date / Time ibuprofen Allergy CONGESTION Verified 08/11/17 07:31 naproxen Allergy CONGESTION Verified 08/11/17 07:31 - Medications Medications: Current Medications Diltiazem HCl (Cardizem Cd) 120 mg PO DAILY DARYA Fluticasone Propionate (Flonase) 2 spr ALBERTINA DAILY [facility] Sodium Chloride (Sodium Chloride 0.9%) 1,000 mls @ 100 mls/hr IV .Q10H [facility] Ciprofloxacin (Cipro 400mg/200ml Dsw) 400 mg in 200 mls @ 200 mls/hr IVPB Q12 DARYA PRN Reason: Protocol Metronidazole (Flagyl 500mg/100ml Ns) 100 mls @ 100 mls/hr IVPB Q8 DARYA PRN Reason: Protocol Loratadine (Claritin) 10 mg PO HS [facility]ARY[facility] Morphine Sulfate (Morphine) 2 mg IVP Q4 PRN PRN Reason: Pain, severe (8-10) Ondansetron HCl (Zofran Inj) 4 mg IVP Q6 PRN PRN Reason: Nausea/Vomiting Fluticasone/Salmeterol (Advair Diskus 250/50) 1 puff IH Q12 [facility] Physical Exam - Constitutional Appears: Non-toxic, No Acute Distress - Eye Exam Eye Exam: EOMI, PERRL - ENT Exam ENT Exam: Mucous Membranes Moist - Respiratory Exam Respiratory Exam: Clear to Auscultation Bilateral. absent: Rales, Rhonchi, Wheezes - Cardiovascular Exam Cardiovascular Exam: RRR, +S1, +S2 - GI/Abdominal Exam GI & Abdominal Exam: Normal Bowel Sounds, Soft, Tenderness (LLQ). absent: Distended, Firm, Guarding, Organomegaly, Rigid - Rectal Exam Rectal Exam: Hemorrhoids (internal). absent: Black Stool, Bloody Stool, Fecal Impaction Additional comments: no mass, normal sphincter tone - Extremities Exam Extremities exam: Positive for: normal inspection. Negative for: pedal edema - Neurological Exam Neurological exam: Alert, Oriented x3 - Psychiatric Exam Psychiatric exam: Normal Affect, Normal Mood - Skin Skin Exam: Dry, Warm Results - Vital Signs Recent Vital Signs: Last Vital Signs Temp 98.3 F 08/11/17 13:44 Pulse 74 08/11/17 13:44 Resp 20 08/11/17 13:44 BP 133/87 08/11/17 13:44 Pulse Ox 100 08/11/17 13:44 - Labs Result Diagrams: 08/11/17 09:00 08/11/17 09:00 Labs: Laboratory Results - last 24 hr 08/11/17 08/11/17 08/11/17 08:45 09:00 09:00 WBC 13.1 H RBC 4.24 Hgb 10.7 L D Hct 32.5 L MCV 76.7 L D MCH 25.2 L MCHC 32.8 L RDW 14.9 H Plt Count 448 H MPV 8.5 Neut % (Auto) 79.5 H Lymph % (Auto) 12.0 L [place] % (Auto) 7.0 Eos % (Auto) 1.0 Baso % (Auto) 0.5 Neut # (Auto) 10.4 H Lymph # (Auto) 1.6 [place] # (Auto) 0.9 H Eos # (Auto) 0.1 Baso # (Auto) 0.1 PT INR APTT Sodium 139 Potassium 3.7 Chloride 105 Carbon Dioxide 25 Anion Gap 13 BUN 15 Creatinine 0.6 L Est GFR ( Amer) > 60 Est GFR (Non-Af Amer) > 60 Random Glucose 99 Calcium 9.0 Total Bilirubin 0.7 AST 26 ALT 28 Alkaline Phosphatase 80 Total Protein 7.4 Albumin 4.0 Globulin 3.4 Albumin/Globulin Ratio 1.2 Lipase 26 Urine Color Yellow Urine Clarity Slighty-cloudy Urine pH 6.0 Ur Specific [place] 1.025 Urine Protein 30 Urine Glucose (UA) Neg Urine Ketones 20 Urine Blood Negative Urine Nitrate Negative Urine Bilirubin Negative Urine Urobilinogen 0.2-1.0 Ur Leukocyte Esterase Neg Urine RBC (Auto) 4 H Urine Microscopic WBC 2 Ur Squamous Epith Cells 8 H Urine Bacteria Rare Stool Occult Blood Positive H 08/11/17 09:00 WBC RBC Hgb Hct MCV MCH MCHC RDW Plt Count MPV Neut % (Auto) Lymph % (Auto) [place] % (Auto) Eos % (Auto) Baso % (Auto) Neut # (Auto) Lymph # (Auto) [place] # (Auto) Eos # (Auto) Baso # (Auto) PT 11.3 INR 1.0 APTT 27.6 Sodium Potassium Chloride Carbon Dioxide Anion Gap BUN Creatinine Est GFR ( Amer) Est GFR (Non-Af Amer) Random Glucose Calcium Total Bilirubin AST ALT Alkaline Phosphatase Total Protein Albumin Globulin Albumin/Globulin Ratio Lipase Urine Color Urine Clarity Urine pH Ur Specific [place] Urine Protein Urine Glucose (UA) Urine Ketones Urine Blood Urine Nitrate Urine Bilirubin Urine Urobilinogen Ur Leukocyte Esterase Urine RBC (Auto) Urine Microscopic WBC Ur Squamous Epith Cells Urine Bacteria Stool Occult Blood Assessment & Plan - Assessment and Plan (Free Text) Assessment: Patient is a 46yo female with PMHx significant for HTN, seasonal allergies and sinus tachycardia who presented to the ED with abdominal pain, diarrhea and rectal bleeding -Descending/sigmoid colitis -Anemia -Rectal bleeding Plan: -CT reviewed - descending/sigmoid colitis noted -Agree with antibiotic coverage - Cipro/Flagyl, would continue for 7-10 days -No prior diagnosis of anemia, check Iron/TIBC/Ferritin and consider supplementation if low -Rectal examination with internal hemorrhoids, external skin tags noted -Start Anusol-HC supp BID for 2 weeks -Liquid diet and advance as tolerated - pt is lactose intolerant -Outpatient follow up for consideration of follow up colonoscopy - no planned endoscopic interventions at this time Case discussed with Dr Law - Date & Time Date: 08/11/17 Time: 13:00 <Laron Law - Last Filed: 08/12/17 14:15> Results - Vital Signs Recent Vital Signs: Last Vital Signs Temp 97.9 F 08/12/17 08:04 Pulse 81 08/12/17 09:51 Resp 20 08/12/17 08:04 BP 108/68 08/12/17 09:51 Pulse Ox 98 08/12/17 08:04 - Labs Result Diagrams: 08/12/17 04:00 08/12/17 04:00 Labs: Laboratory Results - last 24 hr 08/11/17 08/11/17 08/12/17 14:15 14:15 04:00 WBC 10.8 RBC 4.01 Hgb 10.1 L Hct 31.2 L MCV 77.9 L MCH 25.3 L MCHC 32.5 L RDW 14.6 H Plt Count 405 H Sodium Potassium Chloride Carbon Dioxide Anion Gap BUN Creatinine Est GFR ( Amer) Est GFR (Non-Af Amer) Random Glucose Calcium Iron 27 L TIBC 414 % Saturation 6 L Ferritin 5.5 L 08/12/17 04:00 WBC RBC Hgb Hct MCV MCH MCHC RDW Plt Count Sodium 139 Potassium 3.8 Chloride 104 Carbon Dioxide 24 Anion Gap 15 BUN 5 L Creatinine 0.6 L Est GFR ( Amer) > 60 Est GFR (Non-Af Amer) > 60 Random Glucose 85 Calcium 8.5 Iron TIBC % Saturation Ferritin Attending/Attestation - Attestation I have personally seen and examined this patient.: Yes I have fully participated in the care of the patient.: Yes I have reviewed all pertinent clinical information: Yes Notes (Text): 08/12/17 14:12 This is a 46 year old female with PMHx significant for HTN, seasonal allergies and sinus tachycardia who presented to the ED with abdominal pain, diarrhea and rectal bleeding found to have descending/sigmoid colitis and anemia. Agree with antibiotic coverage and outpatient EGD/colonoscopy when symptoms resolve. Advance diet as tolerated. Rectal examination with internal hemorrhoids, external skin tags noted
[2017-08-11] MEDS ORDERED: Pneumococcal 23-Valent Vaccine IM ONE (14:59)
--- NOTE | 2017-08-11 15:24 | CARD ---
APPROVED REPORT EKG Measurement Heart [id number] <Conclusion> Sinus rhythm Otherwise normal ECG
[2017-08-11 15:43] VITALS: O2SAT 98
[2017-08-11 16:12] LABS: IRON 27 ug/dL (37-170)
[2017-08-11 16:21] LABS: % IRON SATURATION 6 % (20-55); TOTAL IRON BINDING CAPACITY 414 ug/dL (250-450)
[2017-08-11] MEDS ORDERED: Hydrocortisone 2.5% (Rectal) CREAM PR SCH (17:00)
[2017-08-11] MEDS: Sodium Chloride 0.9% 1,000 ML IV SCH (18:00)
[2017-08-11] MEDS: metroNIDAZOLE 500mg/100ml NS 100 ML IVPB SCH (18:31)
[2017-08-11] MEDS: Fluticasone-Salmeterol 250-50mcg Diskus IH SCH ×2 (18:31→21:58)
[2017-08-11] MEDS: Ciprofloxacin 400mg/200ml D5W 400 MG/200 ML BAG IVPB SCH (20:46)
[2017-08-12 00:25] VITALS: PULSE 81
[2017-08-12] MEDS: metroNIDAZOLE 500mg/100ml NS 100 ML IVPB SCH ×2 (00:30→09:48)
[2017-08-12] MEDS: Sodium Chloride 0.9% 1,000 ML IV SCH (06:19)
[2017-08-12 06:36] LABS: HEMOGLOBIN 10.1 g/dL (12.0-16.0); MEAN CELL VOLUME 77.9 fl (81.0-99.0); MEAN CORPUSCULAR HEMOGLOBIN 25.3 pg (27.0-31.0); MEAN CORPUSCULAR HGB CONC 32.5 g/dL (33.0-37.0); RBC 4.01 Mil/uL (3.80-5.20); RED CELL DISTRIBUTION WIDTH 14.6 % (11.5-14.5); WHITE BLOOD COUNT 10.8 K/uL (4.8-10.8)
--- NOTE | 2017-08-12 06:58 | CP.PCM.PN ---
Subjective - Date & Time of Evaluation Date of Evaluation: 08/12/17 Time of Evaluation: 06:58 Objective - Vital Signs/Intake and Output Vital Signs (last 24 hours): Temp Pulse Resp BP Pulse Ox 98.4 F 81 19 98/57 L 98 08/12/17 01:00 08/12/17 01:00 08/12/17 01:00 08/12/17 01:00 08/12/17 01:00 - Medications Medications: Current Medications Diltiazem HCl (Cardizem Cd) 120 mg PO DAILY [facility] Fluticasone Propionate (Flonase) 2 spr ALBERTINA DAILY [facility] Hydrocortisone (Anusol-Hc) 1 applic [place] BID [facility] Last Admin: 08/11/17 18:14 Dose: 1 applic Sodium Chloride (Sodium Chloride 0.9%) 1,000 mls @ 100 mls/hr IV .Q10H [facility] Last Admin: 08/12/17 06:19 Dose: 100 mls/hr Ciprofloxacin (Cipro 400mg/200ml Dsw) 400 mg in 200 mls @ 200 mls/hr IVPB Q12 [facility] PRN Reason: Protocol Last Admin: 08/11/17 20:46 Dose: 200 mls/hr Metronidazole (Flagyl 500mg/100ml Ns) 100 mls @ 100 mls/hr IVPB Q8 DARYA PRN Reason: Protocol Last Admin: 08/12/17 00:30 Dose: 100 mls/hr Loratadine (Claritin) 10 mg PO HS [facility] Last Admin: 08/11/17 21:59 Dose: 10 mg Morphine Sulfate (Morphine) 2 mg IVP Q4 PRN PRN Reason: Pain, severe (8-10) Last Admin: 08/11/17 18:30 Dose: 2 mg Ondansetron HCl (Zofran Inj) 4 mg IVP Q6 PRN PRN Reason: Nausea/Vomiting Fluticasone/Salmeterol (Advair Diskus 250/50) 1 puff IH Q12 [facility] Last Admin: 08/11/17 21:58 Dose: Not Given - Labs Labs: 08/12/17 04:00 08/11/17 09:00 PT 11.3 Seconds (9.8-13.1) 08/11/17 09:00 INR 1.0 (0.9-1.2) 08/11/17 09:00 APTT 27.6 Seconds (25.6-37.1) 08/11/17 09:00
--- NOTE | 2017-08-12 07:05 | CP.PCM.PN ---
Objective - Vital Signs/Intake and Output Vital Signs (last 24 hours): Temp Pulse Resp BP Pulse Ox 98.4 F 81 19 98/57 L 98 08/12/17 01:00 08/12/17 01:00 08/12/17 01:00 08/12/17 01:00 08/12/17 01:00 - Medications Medications: Current Medications Diltiazem HCl (Cardizem Cd) 120 mg PO DAILY [facility] Fluticasone Propionate (Flonase) 2 spr ALBERTINA DAILY [facility] Hydrocortisone (Anusol-Hc) 1 applic NM BID [facility] Last Admin: 08/11/17 18:14 Dose: 1 applic Sodium Chloride (Sodium Chloride 0.9%) 1,000 mls @ 100 mls/hr IV .Q10H [facility] Last Admin: 08/12/17 06:19 Dose: 100 mls/hr Ciprofloxacin (Cipro 400mg/200ml Dsw) 400 mg in 200 mls @ 200 mls/hr IVPB Q12 [facility] PRN Reason: Protocol Last Admin: 08/11/17 20:46 Dose: 200 mls/hr Metronidazole (Flagyl 500mg/100ml Ns) 100 mls @ 100 mls/hr IVPB Q8 [facility] PRN Reason: Protocol Last Admin: 08/12/17 00:30 Dose: 100 mls/hr Loratadine (Claritin) 10 mg PO HS [facility] Last Admin: 08/11/17 21:59 Dose: 10 mg Morphine Sulfate (Morphine) 2 mg IVP Q4 PRN PRN Reason: Pain, severe (8-10) Last Admin: 08/11/17 18:30 Dose: 2 mg Ondansetron HCl (Zofran Inj) 4 mg IVP Q6 PRN PRN Reason: Nausea/Vomiting Fluticasone/Salmeterol (Advair Diskus 250/50) 1 puff IH Q12 [facility] Last Admin: 08/11/17 21:58 Dose: Not Given - Labs Labs: 08/12/17 04:00 08/11/17 09:00 PT 11.3 Seconds (9.8-13.1) 08/11/17 09:00 INR 1.0 (0.9-1.2) 08/11/17 09:00 APTT 27.6 Seconds (25.6-37.1) 08/11/17 09:00
[2017-08-12 08:04] VITALS: BP 108/68; RESP 20; TEMP 97.9
[2017-08-12] MEDS ORDERED: Anusol Suppository PR SCH (09:00)
[2017-08-12] MEDS ORDERED: diltiaZEM 120 mg/24 Hours CD Cap PO SCH (09:00)
[2017-08-12] MEDS: Fluticasone-Salmeterol 250-50mcg Diskus IH SCH (09:47)
[2017-08-12] MEDS: Ciprofloxacin 400mg/200ml D5W 400 MG/200 ML BAG IVPB SCH (09:52)
[2017-08-12 10:33] LABS: BLOOD UREA NITROGEN 5 mg/dl (7-17); CALCIUM 8.5 mg/dL (8.4-10.2); GFR AFRICAN-AMERICAN > 60; GFR NON-AFRICAN AMERICAN > 60
--- NOTE | 2017-08-12 11:58 | CP.PCM.DIS ---
Provider - Provider Date of Admission: 08/11/17 11:38 Attending physician: Teresita Garsia MD Time Spent in preparation of Discharge (in minutes): 30 Diagnosis - Discharge Diagnosis (1) Acute diverticulitis Status: Acute (2) Abdominal pain Status: Resolved (3) Internal hemorrhoids Status: Chronic (4) Hypertension Status: Acute (5) Allergic rhinitis Status: Chronic Hospital Course - Lab Results Lab Results: Most Recent Lab Values WBC 10.8 K/uL (4.8-10.8) 08/12/17 04:00 RBC 4.01 Mil/uL (3.80-5.20) 08/12/17 04:00 Hgb 10.1 g/dL (12.0-16.0) L 08/12/17 04:00 Hct 31.2 % (34.0-47.0) L 08/12/17 04:00 MCV 77.9 fl (81.0-99.0) L 08/12/17 04:00 MCH 25.3 pg (27.0-31.0) L 08/12/17 04:00 MCHC 32.5 g/dL (33.0-37.0) L 08/12/17 04:00 RDW 14.6 % (11.5-14.5) H 08/12/17 04:00 Plt Count 405 K/uL (130-400) H 08/12/17 04:00 MPV 8.5 fl (7.2-11.7) 08/11/17 09:00 Neut % (Auto) 79.5 % (50.0-75.0) H 08/11/17 09:00 Lymph % (Auto) 12.0 % (20.0-40.0) L 08/11/17 09:00 [place] % (Auto) 7.0 % (0.0-10.0) 08/11/17 09:00 Eos % (Auto) 1.0 % (0.0-4.0) 08/11/17 09:00 Baso % (Auto) 0.5 % (0.0-2.0) 08/11/17 09:00 Neut # (Auto) 10.4 K/uL (1.8-7.0) H 08/11/17 09:00 Lymph # (Auto) 1.6 K/uL (1.0-4.3) 08/11/17 09:00 [place] # (Auto) 0.9 K/uL (0.0-0.8) H 08/11/17 09:00 Eos # (Auto) 0.1 K/uL (0.0-0.7) 08/11/17 09:00 Baso # (Auto) 0.1 K/uL (0.0-0.2) 08/11/17 09:00 PT 11.3 Seconds (9.8-13.1) 08/11/17 09:00 INR 1.0 (0.9-1.2) 08/11/17 09:00 APTT 27.6 Seconds (25.6-37.1) 08/11/17 09:00 Sodium 139 mmol/l (132-148) 08/12/17 04:00 Potassium 3.8 MMOL/L (3.6-5.0) 08/12/17 04:00 Chloride 104 mmol/L (98-107) 08/12/17 04:00 Carbon Dioxide 24 mmol/L (22-30) 08/12/17 04:00 Anion Gap 15 (10-20) 08/12/17 04:00 BUN 5 mg/dl (7-17) L 08/12/17 04:00 Creatinine 0.6 mg/dl (0.7-1.2) L 08/12/17 04:00 Est GFR ( Amer) > 60 08/12/17 04:00 Est GFR (Non-Af Amer) > 60 08/12/17 04:00 Random Glucose 85 mg/dL (65-105) 08/12/17 04:00 Calcium 8.5 mg/dL (8.4-10.2) 08/12/17 04:00 Iron 27 ug/dL (37-170) L 08/11/17 14:15 TIBC 414 ug/dL (250-450) 08/11/17 14:15 % Saturation 6 % (20-55) L 08/11/17 14:15 Ferritin 5.5 ng/Ml (6.24-137.0) L 08/11/17 14:15 Total Bilirubin 0.7 mg/dl (0.2-1.3) 08/11/17 09:00 AST 26 U/L (14-36) 08/11/17 09:00 ALT 28 U/L (9-52) 08/11/17 09:00 Alkaline Phosphatase 80 U/L (38-126) 08/11/17 09:00 Total Protein 7.4 G/DL (6.3-8.2) 08/11/17 09:00 Albumin 4.0 g/dL (3.5-5.0) 08/11/17 09:00 Globulin 3.4 gm/dL (2.2-3.9) 08/11/17 09:00 Albumin/Globulin Ratio 1.2 (1.0-2.1) 08/11/17 09:00 Lipase 26 U/L (23-300) 08/11/17 09:00 Urine Color Yellow (YELLOW) 08/11/17 08:45 Urine Clarity Slighty-cloudy (Clear) 08/11/17 08:45 Urine pH 6.0 (5.0-8.0) 08/11/17 08:45 Ur Specific [place] 1.025 (1.003-1.030) 08/11/17 08:45 Urine Protein 30 mg/dL (NEGATIVE) 08/11/17 08:45 Urine Glucose (UA) Neg mg/dL (Normal) 08/11/17 08:45 Urine Ketones 20 mg/dL (NEGATIVE) 08/11/17 08:45 Urine Blood Negative (NEGATIVE) 08/11/17 08:45 Urine Nitrate Negative (NEGATIVE) 08/11/17 08:45 Urine Bilirubin Negative (NEGATIVE) 08/11/17 08:45 Urine Urobilinogen 0.2-1.0 mg/dL (0.2-1.0) 08/11/17 08:45 Ur Leukocyte Esterase Neg [place]/uL (Negative) 08/11/17 08:45 Urine RBC (Auto) 4 /hpf (0-3) H 08/11/17 08:45 Urine Microscopic WBC 2 /hpf (0-5) 08/11/17 08:45 Ur Squamous Epith Cells 8 /hpf (0-5) H 08/11/17 08:45 Urine Bacteria Rare (<OCC) 08/11/17 08:45 Stool Occult Blood Positive (NEGATIVE) H 08/11/17 08:45 - Hospital Course Hospital Course: 46 yo female with a pmhx of asthma, HTN, allergic rhinitis , sinus tachycardia , hemorrhoids and lactose intolerance presented to [facility] ED on 08/11/17 with c/o diffuse cramping abdominal pain (10/10) associated with one episode of watery diarrhea and multiple episodes of rectal bleeding for [address] of Abdomen and pelvis showed diverticulitis of left colon. Pt was admitted on 08/11/17 for acute diverculitis and rectal bleeding. Pt started on Cipro 400 mg IVP Q12 and Flagyl 500 mg IPV Q8. GI was consulted and recommended to have outpatient EGD and colonoscopy in 8-12 weeks after resolution of colitis. Pt's H&H is 10.1/ 31.2 this morning. Pt is tolerating PO and medically stable to discharge home with PMD appointment on 08/21/17 at 1 pm and outpatient GI f/u. Discharge medications: Ciprofloxacin [Cipro] 500 mg PO BID 7 Days tab Ferrous Sulfate [Feosol] 325 mg PO DAILY #30 tab Hard Fat/Phenylephrine [place] [Anusol Suppository] 1 sup [place] BID 14 Days sup Metronidazole [Flagyl] 500 mg PO TID 7 Days tablet Ventolin HFA, Zytrec 10 mg po qhs, Flonase 1 spray in each nostril qd Diltiazem 120 mg po daily, Symbicort 80/4.5 mcg/act 2 Puffs bid Discharge Exam - Head Exam Head Exam: ATRAUMATIC, NORMAL INSPECTION, NORMOCEPHALIC - Eye Exam Eye Exam: EOMI, Normal appearance - ENT Exam ENT Exam: Mucous Membranes Moist, Normal Oropharynx - Respiratory Exam Respiratory Exam: Clear to PA & Lateral, NORMAL BREATHING PATTERN. absent: Rales, Rhonchi, Wheezes, Respiratory Distress - Cardiovascular Exam Cardiovascular Exam: REGULAR RHYTHM, RRR, +S1, +S2 - GI/Abdominal Exam GI & Abdominal Exam: Normal Bowel Sounds, Soft. absent: Guarding, Rebound, Rigid, Tenderness - Extremities Exam Extremities exam: normal inspection, pedal pulses present - Neurological Exam Neurological exam: Alert, Oriented x3 - Psychiatric Exam Psychiatric exam: Normal Affect, Normal Mood - Skin Skin Exam: Normal Color, Warm Discharge Plan - Discharge Medications Prescriptions: Ciprofloxacin [Cipro] 500 mg PO BID 7 Days tab Ferrous Sulfate [Feosol] 325 mg PO DAILY #30 tab Hard Fat/Phenylephrine [place] [Anusol Suppository] 1 sup [place] BID 14 Days sup Metronidazole [Flagyl] 500 mg PO TID 7 Days tablet - Follow Up Plan Condition: FAIR Disposition: HOME/ ROUTINE Patient education suggested?: Yes Instructions: Diverticulitis (DC), Hemorrhoids (DC) Additional Instructions: Please follow up Dr. Arnold on August [address] [facility]. Please follow up with [facility] Man Dr. Law. You should have colonoscopy and endoscopy in 8-12 weeks after resolution of your symptoms. Referrals: [facility] [Provider Group] Laron Law MD [Medical Doctor] -
== END 2017-08-12 13:42 | disposition home or self-care (01) ==
LOC: H.ER 07:28 → H.ERHOLD 11:38 → INTOOBSV 11:38 → H.MEDSURG1 12:44
PROVIDERS: ADMIT Family Medicine Geriatric Medicine; ATTEND Family Medicine Geriatric Medicine
DX: K57.33 Diverticulitis of large intestine without perforation or abscess with bleeding (principal); D62 Acute posthemorrhagic anemia; Z23 Encounter for immunization; I10 Essential (primary) hypertension; J45.909 Unspecified asthma, uncomplicated; K76.0 Fatty (change of) liver, not elsewhere classified; K64.4 Residual hemorrhoidal skin tags; K64.8 Other hemorrhoids; E73.9 Lactose intolerance, unspecified; J30.2 Other seasonal allergic rhinitis; R00.0 Tachycardia, unspecified; Z88.6 Allergy status to analgesic agent; F41.9 Anxiety disorder, unspecified
CPT/HCPCS: 36415; 74177; 80048; 80053; 81003; 81025; 82728; 83540; 83550; 83690; 85025; 85027; 85610; 85730; 90471; 90732; 93005; 96360; 99284; G0328; G0378; J0744; J2270; J7040; Q9967

== ENCOUNTER 2017-12-20 09:01 | Emergency (ER) | payer SELFPAY ==
[2017-12-20 09:21] VITALS: BMI 27.2
[2017-12-20] MEDS ORDERED: Albuterol-Ipratrop 3 mg / 0.5 (3 ml) UD INH STA ×3 (09:48→10:55)
--- NOTE | 2017-12-20 10:46 | ED PDOC ---
HPI: SOB/CHF/COPD Time Seen by Provider: 12/20/17 09:43 Chief Complaint (Nursing): Shortness Of Breath Chief Complaint (Provider): Shortness Of Breath History Per: Patient History/Exam Limitations: no limitations Onset/Duration Of Symptoms: Hrs Current Symptoms Are (Timing): Still Present Additional Complaint(s): 47 y/o female with a PMHx of Asthma presents to the ED for evaluation of a dry cough and shortness of breath, exacerbated this morning. Patient reports of having had a head cold for the last several days. Patient states asthma symptoms began this morning. Patient additionally reports of having two nebulizer treatments this morning with no relief prompting today's visit. Denies fever, chest pain, calf pain and change in activity. Pt has been taking amoxicillin that was prescribed by PMD for URI. PMD: Martinez Reinoso Past Medical History Reviewed: Historical Data, Nursing Documentation, Vital Signs Vital Signs: Last Vital Signs Temp 98.7 F 12/20/17 09:20 Pulse 110 H 12/20/17 09:20 Resp 19 12/20/17 09:40 BP 117/73 12/20/17 09:20 Pulse Ox 97 12/20/17 09:40 - Medical History PMH: Anxiety, Asthma, Bronchitis, HTN Denies: Chronic Kidney Disease - Surgical History Surgical History: No Surg Hx, (x2) - Family History Family History: States: Unknown Family Hx, Hypertension - Home Medications Home Medications: Ambulatory Orders Medication Instructions Recorded RX: Albuterol Sulfate [Ventolin 2 puff IH Q6 PRN 08/11/17 Hfa] RX: Budesonide/Formoterol Fumarate 2 puff IH Q12 08/11/17 [Symbicort 160-4.5 Mcg Inhaler] RX: Cetirizine HCl/Pseudoephedrine 1 tab PO Q12 08/11/17 [Zyrtec-D Tablet] RX: Fluticasone Nasal [Flonase] 2 spray ALBERTINA DAILY 08/11/17 RX: diltiaZEM [Cardizem] 120 mg PO DAILY 08/11/17 Ciprofloxacin [Cipro] 500 mg PO BID 7 Days tab 08/12/17 Ferrous Sulfate [Feosol] 325 mg PO DAILY #30 tab 08/12/17 Metronidazole [Flagyl] 500 mg PO TID 7 Days tablet 08/12/17 RX: Fluticasone Propionate 2 spr ALBERTINA DAILY bottle 08/12/17 [Flonase] RX: Hard Fat/Phenylephrine [place] 1 sup [place] BID 14 Days sup 08/12/17 [Anusol Suppository] Albuterol 0.083% [Albuterol 3 ml IH Q4 #40 neb 12/20/17 Sulfate 3 Ml] RX: Prednisone 50 mg PO DAILY #4 tablet 12/20/17 - Allergies Allergies/Adverse Reactions: Allergies Allergy/AdvReac Type Severity Reaction Status Date / Time ibuprofen Allergy CONGESTION Verified 12/20/17 09:49 naproxen Allergy CONGESTION Verified 12/20/17 09:49 Review of Systems ROS Statement: Except As Marked, All Systems Reviewed And Found Negative Constitutional: Negative for: Fever Cardiovascular: Negative for: Chest Pain Respiratory: Positive for: Cough (Dry), Shortness of Breath Musculoskeletal: Negative for: Leg Pain (calf pain) Physical Exam - Reviewed Nursing Documentation Reviewed: Yes Vital Signs Reviewed: Yes - Physical Exam Appears: Positive for: Uncomfortable Head Exam: Positive for: ATRAUMATIC, NORMOCEPHALIC Skin: Positive for: Normal Color, Warm, Dry Eye Exam: Positive for: Normal appearance, EOMI, PERRL Neck: Positive for: Normal, Painless ROM Cardiovascular/Chest: Positive for: Regular Rate, Rhythm. Negative for: Murmur Respiratory: Positive for: Decreased Breath Sounds (Decreased air entry bilater ally ). Negative for: Accessory Muscle Use, Other (retractions ) Gastrointestinal/Abdominal: Positive for: Normal Exam, Soft Pelvic Exam: Negative for: External Exam Normal Back: Positive for: Normal Inspection. Negative for: L CVA Tenderness, R CVA Tenderness Extremity: Positive for: Normal ROM. Negative for: Calf Tenderness (pain on calf squeeze), Deformity, Swelling Neurologic/Psych: Positive for: Alert, Oriented. Negative for: Motor/Sensory Deficits - ECG O2 Sat by Pulse Oximetry: 97 (RA) Pulse Ox Interpretation: Normal - Critical Care Total Time (In Min): 1 Documented Critical Care: Time excludes all time spent performint seperately billable procedures Medical Decision Making Medical Decision Making: Time: 948 A/P: Acute asthma exacerbation triggered by URI -- Tx with Duonebs and predniSONE -- Sudafed for congestion. -- Reassess patient -- Duoneb 3mg/0.5mg 3ml INH -- Sudafed 30 mg PO -- SOLU-Medrol 60 mg PO -- Peak Flow Pre/Post Tx Time: 1055 Plan: -- Duoneb 3mg/0.5mg 3ml INH -- Duoneb 3mg/0.5mg 3ml INH -- Peak Flow Pre/Post Tx -- Peak Flow Pre/Post Tx Time: 1221 -- Patient with improved symptoms after predniSONE and Duonebs. Patient will be given a prescription of nebulizer treatments and predniSONE. Patient instructed to follow up with PMD in one week and to continue taking home medications as prescribed. -- Patient is ambulatory and conversational without becoming short of breath. Scribe Attestation: Documented by Dustin Ennis acting as a scribe for Latrice Slater MD. Provider Scribe Attestation: All medical record entries made by the Scribe were at my direction and personally dictated by me. I have reviewed the chart and agree that the record accurately reflects my personal performance of the history, physical exam, medical decision making, and the department course for this patient. I have also personally directed, reviewed, and agree with the discharge instructions and disposition. Disposition - Clinical Impression Clinical Impression: Asthma - Patient ED Disposition Is Patient to be Admitted: No - Disposition Disposition: Routine/Home Disposition Time: 12:21 Condition: IMPROVED Additional Instructions: Take prednisone daily for the next 4 days. Take Nebulizer treatment as needed. Return to the emergency department if symptoms worsen or if new symptoms develop. Prescriptions: Albuterol 0.083% [Albuterol Sulfate 3 Ml] 3 ml IH Q4 #40 neb RX: Prednisone 50 mg PO DAILY #4 tablet Forms: [employer] (Greek) Print Language: CROATIAN
[2017-12-20] MEDS ORDERED: Albuterol-Ipratrop 3 mg / 0.5 (3 ml) UD ONE (11:50)
[2017-12-20 13:23] VITALS: O2SAT 99
[2017-12-20 13:40] VITALS: BP 129/70; PULSE 105; RESP 18; TEMP 97.8
== END 2017-12-20 13:00 | disposition home or self-care (01) ==
LOC: H.ER 09:01
DX: J45.901 Unspecified asthma with (acute) exacerbation (principal); I10 Essential (primary) hypertension; J44.9 Chronic obstructive pulmonary disease, unspecified

== ENCOUNTER 2017-12-27 07:41 | Emergency (ER) | payer SELFPAY ==
[2017-12-27 07:52] VITALS: BP 130/73; TEMP 97.8; O2SAT 97
[2017-12-27 07:53] VITALS: BMI 27.4
[2017-12-27 08:31] VITALS: RESP 18
[2017-12-27] MEDS ORDERED: Albuterol-Ipratrop 3 mg / 0.5 (3 ml) UD IH STA ×2 (09:02→10:59)
--- NOTE | 2017-12-27 09:09 | ED PDOC ---
HPI: SOB/CHF/COPD Time Seen by Provider: 12/27/17 08:58 Chief Complaint (Nursing): Shortness Of Breath Chief Complaint (Provider): Cough, Shortness Of Breath, wheezing History Per: Patient History/Exam Limitations: no limitations Onset/Duration Of Symptoms: Days (x 1 week) Current Symptoms Are (Timing): Still Present Associated Symptoms: Productive Cough Additional Complaint(s): 47 year old female with a history of asthma presents to the ED with a cough productive of white sputum associated with shortness of breath and wheezing for the last week. Patient has been taking antibiotics without improvement of symptoms. She reports sinus congestion as well as seasonal allergies. Denies fever. PMD: Dr. Martinez Reinoso Past Medical History Reviewed: Historical Data, Nursing Documentation, Vital Signs Vital Signs: Last Vital Signs Temp 97.8 F 12/27/17 07:51 Pulse 103 H 12/27/17 07:51 Resp 18 12/27/17 08:27 BP 130/73 12/27/17 07:51 Pulse Ox 97 12/27/17 07:51 - Medical History PMH: Anxiety, Asthma, Bronchitis, HTN Denies: Chronic Kidney Disease - Surgical History Surgical History: (x2) - Family History Family History: States: Unknown Family Hx, Hypertension - Home Medications Home Medications: Ambulatory Orders Medication Instructions Recorded Albuterol Sulfate [Ventolin Hfa] 2 puff IH Q6 PRN 08/11/17 Budesonide/Formoterol Fumarate 2 puff IH Q12 08/11/17 [Symbicort 160-4.5 Mcg Inhaler] Cetirizine HCl/Pseudoephedrine 1 tab PO Q12 08/11/17 [Zyrtec-D Tablet] Fluticasone Nasal [Flonase] 2 spray ALBERTINA DAILY 08/11/17 diltiaZEM [Cardizem] 120 mg PO DAILY 08/11/17 Ciprofloxacin [Cipro] 500 mg PO BID 7 Days tab 08/12/17 Ferrous Sulfate [Feosol] 325 mg PO DAILY #30 tab 08/12/17 Fluticasone Propionate [Flonase] 2 spr ALBERTINA DAILY bottle 08/12/17 Hard Fat/Phenylephrine [place] 1 sup [place] BID 14 Days sup 08/12/17 [Anusol Suppository] Metronidazole [Flagyl] 500 mg PO TID 7 Days tablet 08/12/17 Albuterol 0.083% [Albuterol 3 ml IH Q4 #40 neb 12/20/17 Sulfate 3 Ml] Prednisone 50 mg PO DAILY #4 tablet 12/20/17 Albuterol HFA [Ventolin HFA 90 2 puff IH Q4H #1 puff 12/27/17 mcg/actuation (8 g)] Fluticasone Nasal [Flonase] 1 spr NS DAILY #1 spr 12/27/17 Prednisone 50 mg PO DAILY #5 tab 12/27/17 - Allergies Allergies/Adverse Reactions: Allergies Allergy/AdvReac Type Severity Reaction Status Date / Time ibuprofen Allergy CONGESTION Verified 12/27/17 08:10 naproxen Allergy CONGESTION Verified 12/27/17 08:10 Review of Systems ROS Statement: Except As Marked, All Systems Reviewed And Found Negative Constitutional: Negative for: Fever ENT: Positive for: Nose Congestion Respiratory: Positive for: Cough, Shortness of Breath, Sputum (white), Wheezing Physical Exam - Reviewed Nursing Documentation Reviewed: Yes Vital Signs Reviewed: Yes - Physical Exam Appears: Positive for: Non-toxic, No Acute Distress Head Exam: Positive for: ATRAUMATIC, NORMAL INSPECTION, NORMOCEPHALIC Skin: Positive for: Normal Color, Warm, Dry Eye Exam: Positive for: EOMI, Normal appearance, PERRL ENT: Positive for: Normal ENT Inspection, Pharynx Is (clear) Neck: Positive for: Normal, Painless ROM, Supple Cardiovascular/Chest: Positive for: Regular Rate, Rhythm. Negative for: Murmur Respiratory: Positive for: Rhonchi (scattered bilaterally), Wheezing (mild expiratory wheezing) Gastrointestinal/Abdominal: Positive for: Normal Exam, Soft. Negative for: Tenderness Extremity: Positive for: Normal ROM (x 4). Negative for: Deformity Neurologic/Psych: Positive for: Alert, Oriented (x 3). Negative for: Motor/Sensory Deficits - ECG O2 Sat by Pulse Oximetry: 97 (RA) Pulse Ox Interpretation: Normal Medical Decision Making Medical Decision Makin:01 --CXR --Duoneb 3 ml INH --Prednisone 50 mg P0 --peak Flow pre/post ------- Scribe Attestation: Documented by Danita Fitzgerald acting as a scribe for Georges Tee MD Provider Scribe Attestation: All medical record entries made by the Scribe were at my direction and personally dictated by me. I have reviewed the chart and agree that the record accurately reflects my personal performance of the history, physical exam, medical decision making, and the department course for this patient. I have also personally directed, reviewed, and agree with the discharge instructions and disposition. Disposition - Clinical Impression Clinical Impression: Allergic symptoms, Asthma exacerbation - Patient ED Disposition Is Patient to be Admitted: No Counseled Patient/Family Regarding: Studies Performed, Diagnosis, Need For Followup, Rx Given - Disposition Referrals: [facility] [Outside] Disposition: Routine/Home Disposition Time: 11:02 Condition: FAIR Prescriptions: Albuterol HFA [Ventolin HFA 90 mcg/actuation (8 g)] 2 puff IH Q4H #1 puff Fluticasone Nasal [Flonase] 1 spr NS DAILY #1 spr Prednisone 50 mg PO DAILY #5 tab Instructions: Asthma in Adults Forms: [facility] (Polish)
[2017-12-27] MEDS ORDERED: Albuterol-Ipratrop 3 mg / 0.5 (3 ml) UD ONE ×2 (09:30→11:08)
--- NOTE | 2017-12-27 10:00 | RAD ---
Date of service: 12/27/2017 HISTORY: cough COMPARISON: 02/11/2017 TECHNIQUE: Chest PA and lateral FINDINGS: LUNGS: No active pulmonary disease. PLEURA: No significant pleural effusion identified. No pneumothorax apparent. CARDIOVASCULAR: Normal. OSSEOUS STRUCTURES: No significant abnormalities. VISUALIZED UPPER ABDOMEN: Normal. OTHER FINDINGS: None. IMPRESSION: No active disease.
[2017-12-27 11:50] VITALS: PULSE 99
== END 2017-12-27 11:46 | disposition home or self-care (01) ==
LOC: H.ER 07:41
DX: J45.901 Unspecified asthma with (acute) exacerbation (principal); J30.2 Other seasonal allergic rhinitis; I10 Essential (primary) hypertension

== ENCOUNTER 2018-05-11 11:36 | Emergency (ER) | payer SELFPAY ==
[2018-05-11 11:37] VITALS: BMI 27.4
[2018-05-11 12:02] VITALS: BP 126/61; PULSE 96; RESP 16; TEMP 98.2; O2SAT 99
[2018-05-11] MEDS ORDERED: Amoxicillin-Clav 875-125 mg Tab PO STA (12:28)
[2018-05-11] MEDS ORDERED: Amoxicillin-Clav 875-125 mg Tab PO ONE (12:37)
--- NOTE | 2018-05-11 12:41 | ED PDOC ---
HPI: General Adult Time Seen by Provider: 05/11/18 12:10 Chief Complaint (Nursing): Headache Chief Complaint (Provider): ENT problem History Per: Patient History/Exam Limitations: no limitations Onset/Duration Of Symptoms: Days (8x days) Have you had recent travel within the past 21 days to any of the following countries: [place], [place], [place] or [place]?: No Current Symptoms Are (Timing): Still Present Severity: Moderate Additional Complaint(s): 47 year old female with a past medical history of hypertension, sinusitis secondary to nasal polyps, and allergies presents to the ED for an evaluation of nasal congestion ongoing for 8x days, associated with facial pressure, chills, headaches, and left ear pain ongoing for 4x days. Patient states that she was seen by a doctor who advised her to have surgery for the removal of her nasal polyps, however she was unable to follow up due to a lack of insurance. Patient reports taking [id number] allergy medications with no relief. Patient denies taking any medications today. 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 Patient describes the headache as pressure around her nose and eyes. Otherwise: (-) fevers, (-) sick contacts, (-) recent travel, (-) throat pain, (-) chest pain, (-) cough, (-) nausea, (-) vomiting, (-) visual changes, (-) epistaxis. Last known menstrual period: present now. PMD: [facility] Past Medical History Reviewed: Historical Data, Nursing Documentation, Vital Signs Vital Signs: Last Vital Signs Temp 98.2 F 05/11/18 11:59 Pulse 96 H 05/11/18 11:59 Resp 16 05/11/18 11:59 BP 126/61 05/11/18 11:59 Pulse Ox 99 05/11/18 11:59 KRISSY Report Viewed: Yes - Medical History PMH: Anxiety, Asthma, Bronchitis, HTN - Surgical History Surgical History: (x2) - Family History Family History: States: Hypertension - Social History Current smoker - smoking cessation education provided: No - Home Medications Home Medications: Ambulatory Orders Medication Instructions Recorded RX: Albuterol Sulfate [Ventolin 2 puff IH Q6 PRN 08/11/17 Hfa] RX: Budesonide/Formoterol Fumarate 2 puff IH Q12 08/11/17 [Symbicort 160-4.5 Mcg Inhaler] RX: Cetirizine HCl/Pseudoephedrine 1 tab PO Q12 08/11/17 [Zyrtec-D Tablet] RX: Fluticasone Nasal [Flonase] 2 spray ALBERTINA DAILY 08/11/17 RX: diltiaZEM [Cardizem] 120 mg PO DAILY 08/11/17 Ciprofloxacin [Cipro] 500 mg PO BID 7 Days tab 08/12/17 Ferrous Sulfate [Feosol] 325 mg PO DAILY #30 tab 08/12/17 Metronidazole [Flagyl] 500 mg PO TID 7 Days tablet 08/12/17 RX: Fluticasone Propionate 2 spr ALBERTINA DAILY bottle 08/12/17 [Flonase] RX: Hard Fat/Phenylephrine [place] 1 sup IN BID 14 Days sup 08/12/17 [Anusol Suppository] Albuterol 0.083% [Albuterol 3 ml IH Q4 #40 neb 12/20/17 Sulfate 3 Ml] RX: Prednisone 50 mg PO DAILY #4 tablet 12/20/17 Fluticasone Nasal [Flonase] 1 spr NS DAILY #1 spr 12/27/17 RX: Albuterol HFA [Ventolin HFA 90 2 puff IH Q4H #1 puff 12/27/17 mcg/actuation (8 g)] RX: Prednisone 50 mg PO DAILY #5 tab 12/27/17 Acetaminophen [Acetaminophen 8 650 mg PO Q8 PRN #21 tablet.er 05/11/18 Hour] Amoxicillin/Clavulanate [Augmentin 1 tab PO BID #14 tab 05/11/18 875 MG-125 MG] Fluticasone Nasal [Flonase] 1 actuation NS DAILY #1 bottle 05/11/18 - Allergies Allergies/Adverse Reactions: Allergies Allergy/AdvReac Type Severity Reaction Status Date / Time ibuprofen Allergy CONGESTION Verified 12/27/17 08:10 naproxen Allergy CONGESTION Verified 12/27/17 08:10 Review of Systems ROS Statement: Except As Marked, All Systems Reviewed And Found Negative Constitutional: Positive for: Chills. Negative for: Fever Eyes: Negative for: Vision Change ENT: Positive for: Ear Pain (left ear), Nose Congestion, Other (facial pressure). Negative for: Nose Discharge, Throat Pain Cardiovascular: Negative for: Chest Pain Respiratory: Negative for: Cough Gastrointestinal: Negative for: Nausea, Vomiting Neurological: Positive for: Headache (pressure around nose and eyes) Physical Exam - Reviewed Nursing Documentation Reviewed: Yes Vital Signs Reviewed: Yes - Physical Exam Comments: GENERAL APPEARANCE: Patient is awake, alert, oriented x 3, in no acute distress. Resting comfortably. SKIN: Warm, dry; (-) cyanosis. EYES: (-) conjunctival injection (-) periorbital edema, (-) periorbital erythema (-) eriorbital tenderness. ENMT: Canals : (-) cerumen impaction (-) erythema (-) exudate. TMs: (-) bulging (-) erythema, (-)effusion, (-) perforation,(-) vesicles. Frontal / maxillary sinuses: (+) tenderness to bilateral frontal and maxillary sinuses (-) TMJ tenderness. Nose: (+) bilateral inferior turbinates swelling. Pharynx: Clear (-) erythema, (-) exudate. Uvula midline. Airway patent: (-) stridor. Mucus membranes moist. NECK: Supple, FROM (-) stiffness, (-) tenderness, (-) lymphadenopathy. LUNGS: clear to auscultation bilaterally, (-) wheezing, (-) rhonchi (-) rhonchi CARDIAC: RRR - ECG O2 Sat by Pulse Oximetry: 99 (RA) Pulse Ox Interpretation: Normal Medical Decision Making Medical Decision Makin:10 Clinical impression: 47 year old female with acute sinusitis and nasal polyps. Initial plan: * augmentin 875 mg-125 mg tab 1 tab PO * tylenol 325 mg tab 650 mg PO * reevaluation 1255 On re-evaluation, patient reports improvement of symptoms. On exam, patient remains AAOx3, in no acute distress. Vitals stable. Lab/Diagnostic results d/w the patient in great detail. Diagnosis of acute sinusitis, sinus headache, nasal polyps d/w the patient. Based on history, exam and diagnostic results, plan will be for outpatient follow up with clinic/ENT. Patient instructed to follow-up with pmd / referral provided / the clinic in 1- 2 days without fail. Advised to take medication as prescribed. Return to the emergency room at any time for any new or worsening symptoms. Patient states she fully agrees with and understands discharge instructions. States that she agrees with the plan and disposition. Verbalized and repeated discharge instructions and plan. I have given the patient opportunity to ask any additional questions. Scribe Attestation: Documented byLatrice Whatley, acting as a scribe for Latrice Cowan Provider Scribe Attestation: All medical record entries made by the Scribe were at my direction and personally dictated by me. I have reviewed the chart and agree that the record accurately reflects my personal performance of the history, physical exam, medical decision making, and the department course for this patient. I have also personally directed, reviewed, and agree with the discharge instructions and disposition. Disposition - Clinical Impression Clinical Impression: Sinusitis, Sinus headache, Nasal polyp - Patient ED Disposition Is Patient to be Admitted: No Counseled Patient/Family Regarding: Studies Performed, Diagnosis, Need For Followup, Rx Given - Disposition Referrals: Flavio June MD [Staff Provider] - [facility] [Outside] Disposition: Routine/Home Disposition Time: 12:55 Condition: STABLE Additional Instructions: The emergency medical care you received today was directed at your acute symptoms. If you were prescribed any medication, please fill it and take as directed. It may take several days for your symptoms to resolve. Return to the Emergency Department if your symptoms worsen, do not improve, or if you have any other problems. Please contact your doctor in 2 days for re-evaluation and follow up / or call one of the physicians/clinics you have been referred to that are listed on the Patient Visit Information form that is included in your discharge packet. Bring any paperwork you were given at discharge with you along with any medications you are taking to your follow up visit. Our treatment cannot replace ongoing medical care by a primary care provider (PCP) outside of the emergency department. Prescriptions: Acetaminophen [Acetaminophen 8 Hour] 650 mg PO Q8 PRN #21 tablet.er PRN Reason: Headache Amoxicillin/Clavulanate [Augmentin 875 MG-125 MG] 1 tab PO BID #14 tab Fluticasone Nasal [Flonase] 1 actuation NS DAILY #1 bottle Instructions: Sinusitis in Adults, Nasal Polyps, Sinus Headache (DC) Forms: [facility] (Turkmen) Print Language: MALAWIAN - POA Present On Arrival: None
== END 2018-05-11 13:35 | disposition home or self-care (01) ==
LOC: H.ER 11:36
DX: R09.81 Nasal congestion (principal); H92.02 Otalgia, left ear; J01.90 Acute sinusitis, unspecified; R51 Headache; I10 Essential (primary) hypertension; J33.9 Nasal polyp, unspecified; J45.909 Unspecified asthma, uncomplicated

== ENCOUNTER 2018-06-09 09:44 | Emergency (ER) | payer SELFPAY ==
[2018-06-09 09:57] VITALS: BMI 25.8
[2018-06-09 10:00] VITALS: O2SAT 97
[2018-06-09] MEDS ORDERED: Albuterol-Ipratrop 3 mg / 0.5 (3 ml) UD INH STA (11:26)
[2018-06-09] MEDS ORDERED: Albuterol-Ipratrop 3 mg / 0.5 (3 ml) UD ONE (11:47)
--- NOTE | 2018-06-09 12:40 | RAD ---
HISTORY: sob COMPARISON: Chest x-ray performed 12/27/17 TECHNIQUE: Chest PA and lateral FINDINGS: LUNGS: No focal consolidation. Please note that chest x-ray has limited sensitivity for the detection of pulmonary masses. PLEURA: No significant pleural effusion identified. No definite pneumothorax . CARDIOVASCULAR: The cardiomediastinal silhouette appears within normal limits of size. No atherosclerotic calcification present. OSSEOUS STRUCTURES: No acute osseous abnormality identified. VISUALIZED UPPER ABDOMEN: Unremarkable. OTHER FINDINGS: None. IMPRESSION: No focal consolidation.
--- NOTE | 2018-06-09 13:10 | ED PDOC ---
HPI: Influenza Time Seen by Provider: 06/09/18 11:24 Chief Complaint: Cough, Cold, Congestion Chief Complaint (Provider): cough, chest tightness, nasal congestion History Per: Patient Exam Limitations: no limitations Have you had recent travel within the past 21 days to any of: No Onset/Duration Of Symptoms: Days Symptoms include: cough (dry ), nasal congestion, other (chest tightness ) Additional complaint(s):: 47 y/o female with hx of asthma and htn, presents to the ed with complaints of cough, nasal congestion, sinus pressure, bilat ear fullness and chest tightness. Pt reports she has been using zrytec and flonase at home for on going sinusitis and nasal congestion. Pt was been seen by ENT and was recommended to have nasal polyp removal sx but has not been able to because of lose of insurance. Additionally pt c/o chest tightness and cough for 3 days, using nebs with minimal relief. Pt denies fever, chest pain, sob. Past Medical History Reviewed: Historical Data, Nursing Documentation, Vital Signs Vital Signs: Last Vital Signs Temp 98.1 F 06/09/18 09:57 Pulse 109 H 06/09/18 09:57 Resp 20 06/09/18 09:57 BP 120/75 06/09/18 09:57 Pulse Ox 97 06/09/18 09:57 - Medical History PMH: Anxiety, Asthma, Bronchitis, HTN Denies: Chronic Kidney Disease - Surgical History Surgical History: (x2) - Family History Family History: States: Unknown Family Hx, Hypertension - Home Medications Home Medications: Ambulatory Orders Medication Instructions Recorded Albuterol Sulfate [Ventolin Hfa] 2 puff IH Q6 PRN 08/11/17 Budesonide/Formoterol Fumarate 2 puff IH Q12 08/11/17 [Symbicort 160-4.5 Mcg Inhaler] Cetirizine HCl/Pseudoephedrine 1 tab PO Q12 08/11/17 [Zyrtec-D Tablet] Fluticasone Nasal [Flonase] 2 spray [place] DAILY 08/11/17 diltiaZEM [Cardizem] 120 mg PO DAILY 08/11/17 Ciprofloxacin [Cipro] 500 mg PO BID 7 Days tab 08/12/17 Ferrous Sulfate [Feosol] 325 mg PO DAILY #30 tab 08/12/17 Fluticasone Propionate [Flonase] 2 spr [place] DAILY bottle 08/12/17 Hard Fat/Phenylephrine [place] 1 sup [place] BID 14 Days sup 08/12/17 [Anusol Suppository] Metronidazole [Flagyl] 500 mg PO TID 7 Days tablet 08/12/17 Albuterol 0.083% [Albuterol 3 ml IH Q4 #40 neb 12/20/17 Sulfate 3 Ml] Prednisone 50 mg PO DAILY #4 tablet 12/20/17 Albuterol HFA [Ventolin HFA 90 2 puff IH Q4H #1 puff 12/27/17 mcg/actuation (8 g)] Fluticasone Nasal [Flonase] 1 spr NS DAILY #1 spr 12/27/17 Prednisone 50 mg PO DAILY #5 tab 12/27/17 Acetaminophen [Acetaminophen 8 650 mg PO Q8 PRN #21 tablet.er 05/11/18 Hour] Amoxicillin/Clavulanate [Augmentin 1 tab PO BID #14 tab 05/11/18 875 MG-125 MG] Fluticasone Nasal [Flonase] 1 actuation NS DAILY #1 bottle 05/11/18 Brompheniramin/Pseudoephedrine 10 ml PO Q6H PRN #60 liquid 06/09/18 [Rynex Pse Liquid] Prednisone [Deltasone] 60 mg PO DAILY #12 tablet 06/09/18 - Allergies Allergies/Adverse Reactions: Allergies Allergy/AdvReac Type Severity Reaction Status Date / Time ibuprofen Allergy CONGESTION Verified 12/27/17 08:10 naproxen Allergy CONGESTION Verified 12/27/17 08:10 Review of Systems ROS Statement: Except As Marked, All Systems Reviewed And Found Negative ENT: Positive for: Ear Pain (fullness bilat) Cardiovascular: Positive for: Other (chest tightness) Respiratory: Positive for: Cough (dry cough) Physical Exam - Reviewed Nursing Documentation Reviewed: Yes Vital Signs Reviewed: Yes - Physical Exam Appears: Positive for: Well, Non-toxic, No Acute Distress Head Exam: Positive for: ATRAUMATIC, NORMAL INSPECTION, NORMOCEPHALIC Skin: Positive for: Normal Color, Warm, Dry Eye Exam: Positive for: Normal appearance, EOMI, PERRL, Periorbital swelling (negative ), Periorbital tenderness (negative ), Conjunctival injection (negative ) ENT: Positive for: Normal ENT Inspection, Pharynx Is (redness, no tonsillar swelling, no exudate ), TM Is/Are (intact), Sinus Pain/Drainage (nasal congestion, sinus pressure, no pain on palpation), Nasal Congestion (clear drainage. ) Neck: Positive for: Normal, Painless ROM Cardiovascular/Chest: Positive for: Regular Rate, Rhythm Respiratory: Positive for: Wheezing (expiratory wheeze bilat ) Pulses-Radial (L): 2+ Pulses-Radial (R): 2+ Gastrointestinal/Abdominal: Positive for: Normal Exam, Soft Back: Positive for: Normal Inspection Extremity: Positive for: Normal ROM Neurological/Psych: Positive for: Awake, Alert, Normal Tone, Oriented - Laboratory Results Urine POC: Negative - ECG O2 Sat by Pulse Oximetry: 97 - Radiology X-Ray: Read By Radiologist X-Ray Interpretation: No Acute Disease - Progress ED Course And Treament: duoneb x3 prednisone upreg 12:50: Pt re-evaluated at this time, pt verbalizes feeling better, chest tightness resolved. Wheezing improved on auscultation. Pt advised on clincial findings. no further work-up needed in ed and will be d/c home in improved condition. Dx: Asthma exacerbation, Sinusitis, Allergic Rhinitis. Rx given for Prednisone 60mg PO x4, Bromfed for cough and nasal congestion, pt advised to monitor b/p while cough syrup, to take at night to help with sleep. Pt already has Flonase and zyrtec,albuterol pt may continue at home. Pt advised to follow- up with PMD. Given return to ED precautions given. Re-evaluation Time: 12:50 Condition: Re-examined, Improving,but remains with symptoms Disposition - Clinical Impression Clinical Impression: Asthma, Allergic rhinitis, Allergic symptoms, Sinusitis - Patient ED Disposition Is Patient to be Admitted: No Counseled Patient/Family Regarding: Diagnosis, Need For Followup, Rx Given - Disposition Referrals: FAMILY PROVIDER,NO [Primary Care Provider] - Disposition: Routine/Home Disposition Time: 12:50 Condition: IMPROVED Additional Instructions: Follow-up with PMD in 1 week Prescriptions: Brompheniramin/Pseudoephedrine [Rynex Pse Liquid] 10 ml PO Q6H PRN #60 liquid PRN Reason: Cough Prednisone [Deltasone] 60 mg PO DAILY #12 tablet Instructions: Sinusitis in Adults, Asthma in Adults Forms: [facility] (Kyrgyz)
[2018-06-09 13:30] VITALS: BP 120/76; PULSE 96; RESP 16; TEMP 98.3
== END 2018-06-09 13:31 | disposition home or self-care (01) ==
LOC: SUPCPDRO 09:44 → H.ER 09:44
DX: J45.909 Unspecified asthma, uncomplicated (principal); J30.9 Allergic rhinitis, unspecified; J32.9 Chronic sinusitis, unspecified; I10 Essential (primary) hypertension

== ENCOUNTER 2018-06-14 05:52 | Emergency (ER) | payer SELFPAY ==
[2018-06-14 05:52] VITALS: BMI 25.8
[2018-06-14] MEDS ORDERED: Magnesium Sulfate 2 gm/50 ml 2 GM/50 ML BAG IV STA (06:27)
[2018-06-14] MEDS ORDERED: Albuterol-Ipratrop 3 mg / 0.5 (3 ml) UD INH STA (06:27)
[2018-06-14] MEDS ORDERED: Albuterol-Ipratrop 3 mg / 0.5 (3 ml) UD ONE (06:36)
[2018-06-14] MEDS ORDERED: Magnesium Sulfate 2 gm/50 ml 2 GM/50 ML BAG ONE (06:36)
--- NOTE | 2018-06-14 06:50 | ED PDOC ---
History of Present Illness History of Present Illness: 47 y/o female with a PMHx of Asthma presents to the ED for evaluation of a cough associated with wheezing and rhinorrhea for the past week. Patient reports of being seen here four days ago, was diagnosed with Asthma Exacerbation and given a prescription for prednisone and cough medicine. Patient notes of taking prescribed medications with no improvement of symptoms. Patient states she is unable to sleep. Patient reports of using her at home nebulizer multiple times in the night with no improvement of symptom. Otherwise, patient denies fever. PMD: no provider HPI: Influenza Time Seen by Provider: 06/14/18 06:17 Chief Complaint: Cough, Cold, Congestion Chief Complaint (Provider): Cough, Cold, Congestion History Per: Patient Exam Limitations: no limitations Onset/Duration Of Symptoms: Days (x7) Past Medical History Reviewed: Historical Data, Nursing Documentation, Vital Signs Vital Signs: Last Vital Signs Temp 97.6 F 06/14/18 06:03 Pulse 105 H 06/14/18 06:03 Resp 16 06/14/18 06:03 BP 123/70 06/14/18 06:03 Pulse Ox 98 06/14/18 06:03 - Medical History PMH: Anxiety, Asthma, Bronchitis, HTN Denies: Chronic Kidney Disease - Surgical History Surgical History: (x2) - Family History Family History: States: Unknown Family Hx, Hypertension - Social History Current smoker - smoking cessation education provided: No - Home Medications Home Medications: Ambulatory Orders Medication Instructions Recorded Albuterol Sulfate [Ventolin Hfa] 2 puff IH Q6 PRN 08/11/17 Budesonide/Formoterol Fumarate 2 puff IH Q12 08/11/17 [Symbicort 160-4.5 Mcg Inhaler] Cetirizine HCl/Pseudoephedrine 1 tab PO Q12 08/11/17 [Zyrtec-D Tablet] Fluticasone Nasal [Flonase] 2 spray ALBERTINA DAILY 08/11/17 diltiaZEM [Cardizem] 120 mg PO DAILY 08/11/17 Ciprofloxacin [Cipro] 500 mg PO BID 7 Days tab 08/12/17 Ferrous Sulfate [Feosol] 325 mg PO DAILY #30 tab 08/12/17 Fluticasone Propionate [Flonase] 2 spr ALBERTINA DAILY bottle 08/12/17 Hard Fat/Phenylephrine [place] 1 sup NM BID 14 Days sup 08/12/17 [Anusol Suppository] Metronidazole [Flagyl] 500 mg PO TID 7 Days tablet 08/12/17 Albuterol 0.083% [Albuterol 3 ml IH Q4 #40 neb 12/20/17 Sulfate 3 Ml] Prednisone 50 mg PO DAILY #4 tablet 12/20/17 Albuterol HFA [Ventolin HFA 90 2 puff IH Q4H #1 puff 12/27/17 mcg/actuation (8 g)] Fluticasone Nasal [Flonase] 1 spr NS DAILY #1 spr 12/27/17 Prednisone 50 mg PO DAILY #5 tab 12/27/17 Acetaminophen [Acetaminophen 8 650 mg PO Q8 PRN #21 tablet.er 05/11/18 Hour] Amoxicillin/Clavulanate [Augmentin 1 tab PO BID #14 tab 05/11/18 875 MG-125 MG] Fluticasone Nasal [Flonase] 1 actuation NS DAILY #1 bottle 05/11/18 Brompheniramin/Pseudoephedrine 10 ml PO Q6H PRN #60 liquid 06/09/18 [Rynex Pse Liquid] Prednisone [Deltasone] 60 mg PO DAILY #12 tablet 06/09/18 Albuterol 0.083% [Albuterol 3 ml IH Q8 #1 neb 06/14/18 Sulfate 3 Ml] Azithromycin [Zithromax] 250 mg PO DAILY #6 tab 06/14/18 Benzonatate [Tessalon Perle] 100 mg PO TID #10 capsule 06/14/18 Non-Formulary 1 ea .ROUTE Q6 #1 ea 06/14/18 - Allergies Allergies/Adverse Reactions: Allergies Allergy/AdvReac Type Severity Reaction Status Date / Time ibuprofen Allergy CONGESTION Verified 12/27/17 08:10 naproxen Allergy CONGESTION Verified 12/27/17 08:10 Review of Systems ROS Statement: Except As Marked, All Systems Reviewed And Found Negative Constitutional: Positive for: Other (lack of sleep). Negative for: Fever ENT: Positive for: Nose Discharge Respiratory: Positive for: Cough, Wheezing Physical Exam - Reviewed Nursing Documentation Reviewed: Yes Vital Signs Reviewed: Yes - Physical Exam Appears: Positive for: No Acute Distress Head Exam: Positive for: ATRAUMATIC, NORMOCEPHALIC Skin: Positive for: Normal Color, Warm, Dry Eye Exam: Positive for: Normal appearance, EOMI, PERRL Neck: Positive for: Normal, Painless ROM, Supple Cardiovascular/Chest: Positive for: Regular Rate, Rhythm. Negative for: Murmur Respiratory: Positive for: Decreased Breath Sounds (decreased air entry). Negative for: Respiratory Distress Gastrointestinal/Abdominal: Positive for: Normal Exam, Soft Extremity: Positive for: Normal ROM. Negative for: Deformity Neurological/Psych: Positive for: Awake, Alert, Oriented. Negative for: Motor/Sensory Deficits Medical Decision Making Medical Decision Making: Time: 646 Impression: 47 y/o female presenting with asthma exacerbation Plan: -- CMP -- Urine -- CBC with Differentials -- Albuterol 3mg/0.5mg 3ml (UD) 3 ml INH -- Magnesium 2 gm in 250 ml IV -- SOLU-Medrol 125 mg IVP -- Heplock Insertion -- Peak Flow Pre/Post Tx Time: 0700 -- Patient endorsed to Dr. Tee, pending ER workup, reassessment and final ER disposition. Scribe Attestation: Documented by Dustin Ennis, acting as a scribe Abby Meyer MD. Provider Scribe Attestation: All medical record entries made by the Scribe were at my direction and personally dictated by me. I have reviewed the chart and agree that the record accurately reflects my personal performance of the history, physical exam, medical decision making, and the department course for this patient. I have also personally directed, reviewed, and agree with the discharge instructions and disposition. - Laboratory Results Result Diagrams: 06/14/18 07:14 06/14/18 07:14 - ECG O2 Sat by Pulse Oximetry: 98 (RA) Pulse Ox Interpretation: Normal Disposition - Clinical Impression Clinical Impression: Bronchitis - Patient ED Disposition Is Patient to be Admitted: Transfer of Care - Disposition Referrals: [facility] [Outside] Disposition: Transfer of Care Disposition Time: 07:00 Condition: FAIR Prescriptions: Albuterol 0.083% [Albuterol Sulfate 3 Ml] 3 ml IH Q8 #1 neb Azithromycin [Zithromax] 250 mg PO DAILY #6 tab Benzonatate [Tessalon Perle] 100 mg PO TID #10 capsule Non-Formulary 1 ea .ROUTE Q6 #1 ea Instructions: Acute Bronchitis Forms: [facility] ([place]inamese) Patient Signed Over To: Georges Tee
--- NOTE | 2018-06-14 07:15 | ED PDOC ---
- Laboratory Results Result Diagrams: 06/14/18 07:14 06/14/18 07:14 - ECG O2 Sat by Pulse Oximetry: 98 (RA) - Progress Re-evaluation Time: 09:56 Condition: Improved Medical Decision Making Medical Decision Makin Patient care endorsed from Dr. Meyer to this provider pending ED workup, reassessment, and final ED disposition. Feels better, wishes to go home. Second visit to ED. Obs discussed, but patient wishes to go home and follow up as outpt. Scribe Attestation: Documented by Laura Akbar, acting as a scribe Geovanni Tee MD. Provider Scribe Attestation: All medical record entries made by the Scribe were at my direction and personally dictated by me. I have reviewed the chart and agree that the record accurately reflects my personal performance of the history, physical exam, medic al decision making, and the department course for this patient. I have also personally directed, reviewed, and agree with the discharge instructions and disposition. Disposition Counseled Patient/Family Regarding: Studies Performed, Diagnosis, Need For Followup, Rx Given - Clinical Impression Clinical Impression: Bronchitis - POA Present On Arrival: None - Disposition Referrals: [facility] [Outside] Disposition: Routine/Home Disposition Time: 10:00 Condition: FAIR Prescriptions: Albuterol 0.083% [Albuterol Sulfate 3 Ml] 3 ml IH Q8 #1 neb Azithromycin [Zithromax] 250 mg PO DAILY #6 tab Benzonatate [Tessalon Perle] 100 mg PO TID #10 capsule Non-Formulary 1 ea .ROUTE Q6 #1 ea Instructions: Acute Bronchitis Forms: [facility] (Greenlandic)
[2018-06-14 07:21] LABS: BASO # 0.1 K/uL (0.0-0.2); BASO % 1.3 % (0.0-2.0); EOS # 1.4 K/uL (0.0-0.7); EOS % 14.8 % (0.0-4.0); HEMOGLOBIN 11.7 g/dL (12.0-16.0); LYMPH # 2.4 K/uL (1.0-4.3); LYMPH % 24.9 % (20.0-40.0); MEAN CELL VOLUME 79.3 fl (81.0-99.0); MEAN CORPUSCULAR HEMOGLOBIN 25.8 pg (27.0-31.0); MEAN CORPUSCULAR HGB CONC 32.5 g/dL (33.0-37.0); MEAN PLATELET VOLUME 8.7 fl (7.2-11.7); MONO # 0.9 K/uL (0.0-0.8); MONO % 9.5 % (0.0-10.0); NEUT # 4.7 K/uL (1.8-7.0); NEUT % 49.5 % (50.0-75.0); RBC 4.53 Mil/uL (3.80-5.20); RED CELL DISTRIBUTION WIDTH 23.3 % (11.5-14.5); WHITE BLOOD COUNT 9.5 K/uL (4.8-10.8)
[2018-06-14 07:29] LABS: ALB/GLOB RATIO 1.3 (1.0-2.1); BLOOD UREA NITROGEN 13 mg/dl (7-17); CALCIUM 8.9 mg/dL (8.4-10.2); GFR NON-AFRICAN AMERICAN > 60
[2018-06-14 07:30] LABS: ALT/SGPT 21 U/L (9-52); AST/SGOT 41 U/L (14-36)
[2018-06-14 09:27] VITALS: BP 117/75; PULSE 88; RESP 18; TEMP 98.1
[2018-06-14 09:59] VITALS: O2SAT 98
== END 2018-06-14 10:11 | disposition home or self-care (01) ==
LOC: H.ER 05:52
DX: J40 Bronchitis, not specified as acute or chronic (principal); I10 Essential (primary) hypertension
CPT/HCPCS: 80053; 81025; 85025; 94640; 96374; 96375; 99283; J2930

== ENCOUNTER 2018-07-04 21:16 | Emergency (ER) | payer SELFPAY ==
[2018-07-04 21:30] VITALS: BMI 25.9
[2018-07-04] MEDS ORDERED: Albuterol-Ipratrop 3 mg / 0.5 (3 ml) UD INH STA ×3 (21:43→21:44)
[2018-07-04] MEDS ORDERED: Promethazine 6.25 MG/5 ML CUP PO STA (21:43)
[2018-07-04] MEDS ORDERED: Albuterol-Ipratrop 3 mg / 0.5 (3 ml) UD ONE (21:51)
[2018-07-04] MEDS ORDERED: Promethazine 6.25 MG/5 ML CUP ONE (21:51)
--- NOTE | 2018-07-04 22:17 | ED PDOC ---
HPI: SOB/CHF/COPD Time Seen by Provider: 07/04/18 21:35 Chief Complaint (Nursing): Shortness Of Breath Chief Complaint (Provider): Shortness Of Breath History Per: Patient History/Exam Limitations: no limitations Onset/Duration Of Symptoms: Days Current Symptoms Are (Timing): Still Present Additional Complaint(s): 47 y/o female with a PMHx of Asthma and seasonal allergies presents to the ED for evaluation of cough and wheezing for a couple weeks. Patient notes of taking Zyretc, Symbicort and Albuterol for weeks with no relief of symptoms. Patient reports of coming to the ED twice last month for the same symptoms. Patient is unaware of the trigger. Otherwise, patient denies fever, chills, sweats and weight loss. PMD: Clinic Past Medical History Reviewed: Historical Data, Nursing Documentation, Vital Signs Vital Signs: Last Vital Signs Temp 98.4 F 07/04/18 21:29 Pulse 99 H 07/04/18 21:29 Resp 16 07/04/18 21:29 BP 128/77 07/04/18 21:29 Pulse Ox 99 07/04/18 21:29 - Medical History PMH: Anxiety, Asthma, Bronchitis, HTN Denies: Chronic Kidney Disease - Surgical History Surgical History: (x2) - Family History Family History: States: Hypertension - Home Medications Home Medications: Ambulatory Orders Medication Instructions Recorded Albuterol Sulfate [Ventolin Hfa] 2 puff IH Q6 PRN 08/11/17 Budesonide/Formoterol Fumarate 2 puff IH Q12 08/11/17 [Symbicort 160-4.5 Mcg Inhaler] Cetirizine HCl/Pseudoephedrine 1 tab PO Q12 08/11/17 [Zyrtec-D Tablet] Fluticasone Nasal [Flonase] 2 spray ALBERTINA DAILY 08/11/17 diltiaZEM [Cardizem] 120 mg PO DAILY 08/11/17 Ciprofloxacin [Cipro] 500 mg PO BID 7 Days tab 08/12/17 Ferrous Sulfate [Feosol] 325 mg PO DAILY #30 tab 08/12/17 Fluticasone Propionate [Flonase] 2 spr [place] DAILY bottle 08/12/17 Hard Fat/Phenylephrine [place] 1 sup HI BID 14 Days sup 08/12/17 [Anusol Suppository] Metronidazole [Flagyl] 500 mg PO TID 7 Days tablet 08/12/17 Albuterol 0.083% [Albuterol 3 ml IH Q4 #40 neb 12/20/17 Sulfate 3 Ml] Prednisone 50 mg PO DAILY #4 tablet 12/20/17 Albuterol HFA [Ventolin HFA 90 2 puff IH Q4H #1 puff 12/27/17 mcg/actuation (8 g)] Fluticasone Nasal [Flonase] 1 spr NS DAILY #1 spr 12/27/17 Prednisone 50 mg PO DAILY #5 tab 12/27/17 Acetaminophen [Acetaminophen 8 650 mg PO Q8 PRN #21 tablet.er 05/11/18 Hour] Amoxicillin/Clavulanate [Augmentin 1 tab PO BID #14 tab 05/11/18 875 MG-125 MG] Fluticasone Nasal [Flonase] 1 actuation NS DAILY #1 bottle 05/11/18 Brompheniramin/Pseudoephedrine 10 ml PO Q6H PRN #60 liquid 06/09/18 [Rynex Pse Liquid] Prednisone [Deltasone] 60 mg PO DAILY #12 tablet 06/09/18 Albuterol 0.083% [Albuterol 3 ml IH Q8 #1 neb 06/14/18 Sulfate 3 Ml] Azithromycin [Zithromax] 250 mg PO DAILY #6 tab 06/14/18 Benzonatate [Tessalon Perle] 100 mg PO TID #10 capsule 06/14/18 Non-Formulary 1 ea .ROUTE Q6 #1 ea 06/14/18 Albuterol 0.083% [Albuterol 3 ml IH Q4 PRN #20 neb 07/04/18 Sulfate 3 Ml] Guaifenesin [Mucosa] 400 mg PO BID PRN #12 tablet 07/04/18 Prednisone [Deltasone] 40 mg PO DAILY 3 Days #6 tablet 07/04/18 Promethazine [Phenergan Syrup] 12.5 mg PO BID PRN #100 ml 07/04/18 - Allergies Allergies/Adverse Reactions: Allergies Allergy/AdvReac Type Severity Reaction Status Date / Time ibuprofen Allergy CONGESTION Verified 07/04/18 21:35 naproxen Allergy CONGESTION Verified 07/04/18 21:35 Review of Systems ROS Statement: Except As Marked, All Systems Reviewed And Found Negative Constitutional: Negative for: Chills, Sweats, Weight loss Respiratory: Positive for: Cough, Wheezing Physical Exam - Reviewed Nursing Documentation Reviewed: Yes Vital Signs Reviewed: Yes - Physical Exam Appears: Positive for: No Acute Distress Head Exam: Positive for: ATRAUMATIC, NORMOCEPHALIC Skin: Positive for: Normal Color, Warm, Dry Eye Exam: Positive for: Normal appearance, EOMI, PERRL Neck: Positive for: Normal, Painless ROM Cardiovascular/Chest: Positive for: Regular Rate, Rhythm. Negative for: Murmur Respiratory: Positive for: Wheezing (mild wheezing bilaterally), Other (Active coughing). Negative for: Respiratory Distress Gastrointestinal/Abdominal: Positive for: Normal Exam, Soft. Negative for: Tenderness Back: Positive for: Normal Inspection Extremity: Positive for: Normal ROM. Negative for: Deformity Neurological/Psych: Positive for: Awake, Alert, Oriented (x3), Other (speaking full sentences). Negative for: Motor/Sensory Deficits - ECG O2 Sat by Pulse Oximetry: 99 (RA) Pulse Ox Interpretation: Normal Medical Decision Making Medical Decision Making: Time: 2143 A/P: 47 y/o female with mild asthma exacerbation. -- Well appearing. -- Not concerned for pulmonary embolism, pneumothorax, pneumonia or cardiac involvement. -- Will treat symptomatically and re-evaluate -- Duoneb 3mg/0.5 mg 3 ml (UD) 3ml INH -- Duoneb 3mg/0.5 mg 3 ml (UD) 3ml INH -- Duoneb 3mg/0.5 mg 3 ml (UD) 3ml INH -- Phenergan Syrup 12.5 mg PO -- PredniSONE 40 mg PO -- Peak Flow Pre/Post Tx 23:32 Upon reevaluation, patients states she is feeling much better and is no longer wheezing or coughing. Patient states she has a follow up on and advised her to follow up as scheduled. If symptoms worsen or new symptoms arise, patient advised to return to the ER. Patient is well appearing with normal vitals. Scribe Attestation: Documented by Dustin Ennis, acting as a scribe Dai Terrell MD. Provider Scribe Attestation: All medical record entries made by the Scribe were at my direction and personally dictated by me. I have reviewed the chart and agree that the record accurately reflects my personal performance of the history, physical exam, medical decision making, and the department course for this patient. I have also personally directed, reviewed, and agree with the discharge instructions and disposition. Disposition - Clinical Impression Clinical Impression: Asthma exacerbation - Disposition Referrals: [facility] [Outside] Disposition: Routine/Home Disposition Time: 23:32 Condition: IMPROVED Prescriptions: Albuterol 0.083% [Albuterol Sulfate 3 Ml] 3 ml IH Q4 PRN #20 neb PRN Reason: Wheezing Guaifenesin [Mucosa] 400 mg PO BID PRN #12 tablet PRN Reason: Phlegm Prednisone [Deltasone] 40 mg PO DAILY 3 Days #6 tablet Promethazine [Phenergan Syrup] 12.5 mg PO BID PRN #100 ml PRN Reason: Cough Instructions: Asthma in Adults Forms: [facility] ([place]raltarian)
[2018-07-05 00:30] VITALS: BP 129/70; PULSE 90; RESP 18; TEMP 98
[2018-07-05 06:15] VITALS: O2SAT 99
--- NOTE | 2018-07-05 11:26 | RAD ---
Date of service: 07/04/2018 HISTORY: cough, asthma COMPARISON: Chest radiograph dated 06/09/2018. TECHNIQUE: Chest PA and lateral views FINDINGS: LUNGS: No active pulmonary disease. PLEURA: No significant pleural effusion identified. No pneumothorax apparent. CARDIOVASCULAR: No aortic atherosclerotic calcification present. Normal cardiac size. No pulmonary vascular congestion. OSSEOUS STRUCTURES: No significant abnormalities. VISUALIZED UPPER ABDOMEN: Normal. OTHER FINDINGS: None. IMPRESSION: No active disease.
== END 2018-07-04 23:40 | disposition home or self-care (01) ==
LOC: H.ER 21:16
DX: J45.901 Unspecified asthma with (acute) exacerbation (principal); I10 Essential (primary) hypertension; J44.9 Chronic obstructive pulmonary disease, unspecified